=== PATIENT | female | born 2000 | race Caucasian/White ===

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

== ENCOUNTER 2020-06-30 17:48 | Emergency (ER) | payer OTHER ==
[2020-06-30 17:54] VITALS: BP 101/74; PULSE 75; RESP 16; TEMP 98.2
--- NOTE | 2020-06-30 18:01 | ED ---
Chest Pain HPI - General Source: patient Mode of arrival: ambulatory Limitations: no limitations <Aristides Frazier - Last Filed: 06/30/20 19:01> <[place] Whiting - Last Filed: 06/30/20 19:24> - General Chief Complaint: Chest Pain Stated Complaint: Chest pain Time Seen by Provider: 06/30/20 18:00 - History of Present Illness Initial Comments: 20-year-old female presenting to the emergency department with a chief complaint chest pain shortness of breath. Patient reports the symptoms began about 2 hours prior to arrival. She states that she was exposed to a wooded positive patient about 10 days ago and only recently found out that he was positive. Over the last few days she develop a sore throat and some sinus congestion. She also reports a nonproductive cough. Does report some chills but no fevers. She reports nausea but no vomiting or diarrhea. She states the chest pain is sharp and midsternal without any radiation. She does report dyspnea on exertion. Denies history of smoking asthma or COPD. Denies loss of taste or smell. (Aristides Frazier) - Related Data Home Medications Medication Instructions Recorded Confirmed Venlafaxine HCl [Effexor XR] 300 mg PO HS 10/19/18 10/25/19 ALPRAZolam [Xanax] 0.25 mg PO DAILY PRN 04/23/19 10/25/19 traZODone HCL [Desyrel] 100 mg PO HS 04/23/19 10/25/19 Ketorolac [Toradol] 10 mg PO Q6HR 10/25/19 10/25/19 Omeprazole [PriLOSEC] 40 mg PO HS 10/25/19 10/25/19 Ondansetron [Zofran ODT] 4 mg PO Q6H PRN 10/25/19 10/25/19 Tamsulosin HCl [Flomax] 0.4 mg PO HS 10/25/19 10/25/19 Previous Rx's Medication Instructions Recorded Nitrofurantoin Monohyd/M-Cryst 100 mg PO Q12HR #14 cap 10/25/19 [Macrobid] Ondansetron Odt [Zofran Odt] 4 mg PO Q8HR PRN #20 tab 10/25/19 Tamsulosin [Flomax] 0.4 mg PO DAILY #7 cap 10/25/19 Cephalexin [Keflex] 500 mg PO Q8HR #30 cap 12/30/19 Ondansetron Odt [Zofran Odt] 4 mg PO Q8HR PRN #10 tab 12/30/19 Famotidine [Pepcid] 20 mg PO DAILY #3 tablet 01/01/20 predniSONE 50 mg PO DAILY #3 tab 01/01/20 Allergies Allergy/AdvReac Type Severity Reaction Status Date / Time amoxicillin trihydrate Allergy Anaphylaxis Verified 06/30/20 17:54 [From Augmentin] azithromycin [From Zithromax] Allergy Anaphylaxis Verified 06/30/20 17:54 potassium clavulanate Allergy Anaphylaxis Verified 06/30/20 17:54 [From Augmentin] Sulfa (Sulfonamide Allergy Anaphylaxis Verified 06/30/20 17:54 Antibiotics) sulfamethoxazole Allergy Anaphylaxis Verified 06/30/20 17:54 [From Septra] trimethoprim [From Septra] Allergy Anaphylaxis Verified 06/30/20 17:54 Review of Systems ROS Other: All systems not noted in ROS Statement are negative. <Aristides Frazier - Last Filed: 06/30/20 19:01> ROS Other: All systems not noted in ROS Statement are negative. <[place] - Last Filed: 06/30/20 19:24> ROS Statement: Those systems with pertinent positive or pertinent negative responses have been documented in the HPI. EKG Findings - EKG Comments: EKG Findings:: Sinus rhythm. S1Q3T3. Ventricular rate 80, MT 156, QRS 78, QTC 424. <Aristides Frazier - Last Filed: 06/30/20 19:01> Past Medical History Past Medical History: No Reported History Additional Past Medical History / Comment(s): renal calculi History of Any Multi-Drug Resistant Organisms: None Reported Past Surgical History: Ear Surgery, Tonsillectomy Additional Past Surgical History / Comment(s): nephrolytotomy for stone removal with stent placement Past Anesthesia/Blood Transfusion Reactions: No Reported Reaction Past Psychological History: Anxiety, Depression, Panic Disorder Past Alcohol Use History: None Reported Past Drug Use History: None Reported - Past Family History Father Family Medical History: No Reported History Mother Family Medical History: Asthma, Diabetes Mellitus, Hypertension <Aristides Frazier - Last Filed: 11/15/20 19:01> General Exam Limitations: no limitations General appearance: alert, in no apparent distress, obese Head exam: Present: atraumatic, normocephalic, normal inspection Eye exam: Present: normal appearance, PERRL, EOMI Pupils: Present: normal accommodation ENT exam: Present: normal exam, normal oropharynx, mucous membranes moist, TM's normal bilaterally, normal external ear exam Neck exam: Present: normal inspection, full ROM. Absent: tenderness Respiratory exam: Present: normal lung sounds bilaterally. Absent: respiratory distress, wheezes, rales, rhonchi, stridor, chest wall tenderness, accessory muscle use Cardiovascular Exam: Present: regular rate, normal rhythm, normal heart sounds. Absent: bradycardia, tachycardia, irregular rhythm, systolic murmur, diastolic murmur GI/Abdominal exam: Present: soft. Absent: distended, tenderness, guarding Extremities exam: Present: normal inspection, full ROM, normal capillary refill. Absent: tenderness, pedal edema, joint swelling, calf tenderness Back exam: Present: normal inspection, full ROM. Absent: tenderness, CVA tenderness (R), CVA tenderness (L) Neurological exam: Present: alert, oriented X3, normal gait Psychiatric exam: Present: normal affect, anxious Skin exam: Present: warm, dry, intact, normal color <Aristides Frazier - Last Filed: 06/30/20 19:01> Course Vital Signs 06/30/20 17:51 Temperature 98.2 F Pulse Rate 75 Respiratory 16 Rate Blood Pressure 101/74 O2 Sat by Pulse 100 Oximetry Chest Pain [facility] - Differential Diagnosis ACS, Pleurisy-Other, Chest Wall Syndrome <Aristides Frazier - Last Filed: 06/30/20 19:01> <[place] Wh[place] - Last Filed: 06/30/20 19:24> - [facility] 20-year-old female presenting to the emergency department with chief complaint of chest pain shortness of breath. On physical examination, patient is not in any respiratory distress. No reproducible chest pain she is slightly anxious. Chest x-ray is unremarkable. Cor testing pending. EKG changes suggestive of possible PE. CBC, CMP, troponin, coags, d-dimer pending. At this time, patient care signed off to . (Aristides Frazier) patient presented for chest pain. Laboratory studies are all normal. D-dimer is negative. Troponin is negative. Chest x-rays negative. There is no evidence of any acute emergency condition. Patient is stable for discharge. ([place] Wh[place]) Disposition <Aristides Frazier - Last Filed: 06/30/20 19:01> Is patient prescribed a controlled substance at d/c from ED?: No <[place] - Last Filed: 06/30/20 19:24> Clinical Impression: Atypical chest pain Disposition: HOME SELF-CARE Condition: Good Instructions (If sedation given, give patient instructions): Chest Pain (ED) Referrals: Shailesh Lorenz MD [Primary Care Provider] - 1-2 days
--- NOTE | 2020-06-30 18:32 | XR ---
EXAMINATION TYPE: XR chest 2V DATE OF EXAM: 06/30/2020 COMPARISON: NONE HISTORY: Short of breath TECHNIQUE: FINDINGS: Heart and mediastinum are normal. Lungs are clear. Diaphragm is normal. Bony thorax appears normal. IMPRESSION: Normal chest. Normal heart.
[2020-06-30 19:03] LABS: ALT 21 U/L (4-34); AST 26 U/L (14-36); African American GFR (CKD) >90 (>60 ml/min/1.73 sqM); Albumin 3.9 g/dL (3.5-5.0); Alkaline Phosphatase 74 U/L (38-126); Anion Gap 6 mmol/L; Blood Urea Nitrogen 13 mg/dL (7-17); Calcium 9.1 mg/dL (8.4-10.2); Carbon Dioxide 27 mmol/L (22-30); Chloride 105 mmol/L (98-107); Glucose 87 mg/dL (74-99); Magnesium 1.9 mg/dL (1.6-2.3); Non-African American GFR(CKD) >90 (>60 ml/min/1.73 sqM); Sodium 138 mmol/L (137-145); Total Bilirubin 0.3 mg/dL (0.2-1.3); Total Protein 6.8 g/dL (6.3-8.2)
[2020-06-30 19:04] LABS: Basophils % (A) 0 %; Eosinophils % (A) 0 %; HCT 41.4 % (34.0-46.0); HGB 13.2 gm/dL (11.4-16.0); Lymphocytes # (A) 1.9 k/uL (1.0-4.8); Lymphocytes % (A) 31 %; MCH 26.4 pg (25.0-35.0); MCHC 31.8 g/dL (31.0-37.0); MCV 82.9 fL (80.0-100.0); Mean Platelet Volume 7.1; Monocytes # (A) 0.4 k/uL (0-1.0); Monocytes % (A) 6 %; Neutrophils # (A) 3.6 k/uL (1.3-7.7); Neutrophils % (A) 60 %; Platelet Count 276 k/uL (150-450); RDW 14.3 % (11.5-15.5)
[2020-06-30 19:20] LABS: D-Dimer 0.21 mg/L FEU (<0.60); INR 0.9 (<1.2); Prothrombin Time 9.6 sec (9.0-12.0)
== END 2020-06-30 19:44 | disposition home or self-care (01) ==
LOC: EC 17:48
DX: R07.89 Other chest pain (principal); F41.9 Anxiety disorder, unspecified; F32.9 Major depressive disorder, single episode, unspecified; F41.0 Panic disorder [episodic paroxysmal anxiety]; Z79.899 Other long term (current) drug therapy; Z88.0 Allergy status to penicillin; Z88.1 Allergy status to other antibiotic agents; Z88.2 Allergy status to sulfonamides; Z20.828 Contact with and (suspected) exposure to other viral communicable diseases
CPT/HCPCS: 36415; 93005; 85379; 80053; 83735; 84484; 85025; 85610; 85730; 71046; 99285; U0003

== ENCOUNTER 2020-08-07 12:17 | Emergency (ER) | payer OTHER ==
[2020-08-07 12:37] VITALS: TEMP 98.1
[2020-08-07] MEDS ORDERED: LORazepam 1 MG TAB PO STA (12:56)
--- NOTE | 2020-08-07 13:05 | ED ---
General Adult HPI - General Chief complaint: Anxiety Stated complaint: medication problem Time Seen by Provider: 08/07/20 12:48 Source: patient, RN notes reviewed, old records reviewed Mode of arrival: ambulatory Limitations: no limitations - History of Present Illness Initial comments: 20-year-old female presenting for evaluation of nausea vomiting, anxiety. Patient is currently weaning off her Effexor and starting a new antidepressant. She is not suicidal or homicidal. She is not complaining of depression just a shaky sensation and anxiety. Additionally she's had persistent nausea. No significant vomiting. No diarrhea. No fever. - Related Data Home Medications Medication Instructions Recorded Confirmed Venlafaxine HCl [Effexor XR] 150 mg PO Q48H 10/19/18 08/07/20 traZODone HCL [Desyrel] 100 mg PO HS 04/23/19 08/07/20 Ondansetron [Zofran ODT] 4 mg PO Q6H PRN 10/25/19 08/07/20 Cariprazine HCl [Vraylar] 1.5 mg PO HS 08/07/20 08/07/20 Vilazodone HCl [Viibryd] 20 mg PO Q48H 08/07/20 08/07/20 Previous Rx's Medication Instructions Recorded LORazepam [Ativan] 0.5 mg PO TID PRN 3 Days #9 tab 08/07/20 Allergies Allergy/AdvReac Type Severity Reaction Status Date / Time amoxicillin trihydrate Allergy Anaphylaxis Verified 08/07/20 14:06 [From Augmentin] azithromycin [From Zithromax] Allergy Anaphylaxis Verified 08/07/20 14:06 potassium clavulanate Allergy Anaphylaxis Verified 08/07/20 14:06 [From Augmentin] Sulfa (Sulfonamide Allergy Anaphylaxis Verified 08/07/20 14:06 Antibiotics) sulfamethoxazole Allergy Anaphylaxis Verified 08/07/20 14:06 [From Septra] trimethoprim [From Septra] Allergy Anaphylaxis Verified 08/07/20 14:06 Review of Systems ROS Statement: Those systems with pertinent positive or pertinent negative responses have been documented in the HPI. ROS Other: All systems not noted in ROS Statement are negative. Past Medical History Past Medical History: No Reported History Additional Past Medical History / Comment(s): renal calculi History of Any Multi-Drug Resistant Organisms: None Reported Past Surgical History: Ear Surgery, Tonsillectomy Additional Past Surgical History / Comment(s): nephrolytotomy for stone removal with stent placement Past Anesthesia/Blood Transfusion Reactions: No Reported Reaction Past Psychological History: Anxiety, Depression, Panic Disorder Smoking Status: Never smoker Past Alcohol Use History: None Reported Past Drug Use History: None Reported - Past Family History Father Family Medical History: No Reported History Mother Family Medical History: Asthma, Diabetes Mellitus, Hypertension General Exam Limitations: no limitations General appearance: alert, in no apparent distress Head exam: Present: atraumatic, normocephalic Eye exam: Present: normal appearance, PERRL ENT exam: Present: normal exam Neck exam: Present: normal inspection. Absent: tenderness, meningismus Respiratory exam: Present: normal lung sounds bilaterally. Absent: respiratory distress, wheezes Cardiovascular Exam: Present: regular rate, normal rhythm GI/Abdominal exam: Present: soft. Absent: distended, tenderness, guarding, rebound Extremities exam: Present: normal inspection, normal capillary refill. Absent: pedal edema Back exam: Present: normal inspection Neurological exam: Present: alert, oriented X3 Psychiatric exam: Present: normal affect, normal mood. Absent: depressed, suicidal ideation Skin exam: Present: warm, dry, intact. Absent: cyanosis, diaphoretic Course Vital Signs 08/07/20 12:33 Temperature 98.1 F Pulse Rate 101 H Respiratory 20 Rate Blood Pressure 149/89 O2 Sat by Pulse 98 Oximetry Medical Decision Making - Medical Decision Making 20-year-old female with anxiety, nausea. I did obtain laboratory testing given the complaint of nausea with some minimal epigastric abdominal pain. She has normal CBC, normal CMP, negative lipase, negative urinalysis, negative hCG. She will be prescribed several days of Ativan as she is transitioning off her current antidepressant. Patient is agreeable with plan and does have good outpatient follow-up. - Lab Data Result diagrams: 08/07/20 13:18 08/07/20 13:18 Lab Results 08/07/20 08/07/20 08/07/20 Range/Units 13:18 13:18 13:26 WBC 6.2 (4.0-11.0) k/uL RBC 4.91 (3.80-5.40) m/uL Hgb 13.4 (11.4-16.0) gm/dL Hct 40.7 (34.0-46.0) % MCV 82.7 (80.0-100.0) fL MCH 27.2 (25.0-35.0) pg MCHC 32.9 (31.0-37.0) g/dL RDW 14.4 (11.5-15.5) % Plt Count 276 (150-450) k/uL MPV 7.1 Neutrophils % 64 % Lymphocytes % 29 % Monocytes % 5 % Eosinophils % 0 % Basophils % 0 % Neutrophils # 4.0 (1.3-7.7) k/uL Lymphocytes # 1.8 (1.0-4.8) k/uL Monocytes # 0.3 (0-1.0) k/uL Eosinophils # 0.0 (0-0.7) k/uL Basophils # 0.0 (0-0.2) k/uL Sodium 140 (137-145) mmol/L Potassium 4.5 (3.5-5.1) mmol/L Chloride 107 (98-107) mmol/L Carbon Dioxide 27 (22-30) mmol/L Anion Gap 6 mmol/L BUN 11 (7-17) mg/dL Creatinine 0.69 (0.52-1.04) mg/dL Est GFR (CKD-EPI)AfAm >90 (>60 ml/min/1.73 sqM) Est GFR (CKD-EPI)NonAf >90 (>60 ml/min/1.73 sqM) Glucose 108 H (74-99) mg/dL Calcium 9.5 (8.4-10.2) mg/dL Total Bilirubin 0.5 (0.2-1.3) mg/dL AST 27 (14-36) U/L ALT 26 (4-34) U/L Alkaline Phosphatase 64 (38-126) U/L Total Protein 7.4 (6.3-8.2) g/dL Albumin 4.1 (3.5-5.0) g/dL Amylase 51 (30-110) U/L Lipase 54 (23-300) U/L Urine Color Light Yellow Urine Appearance Clear (Clear) Urine pH 5.5 (5.0-8.0) Ur Specific [place] 1.008 (1.001-1.035) Urine Protein Negative (Negative) Urine Glucose (UA) Negative (Negative) Urine Ketones Negative (Negative) Urine Blood Negative (Negative) Urine Nitrite Negative (Negative) Urine Bilirubin Negative (Negative) Urine Urobilinogen <2.0 (<2.0) mg/dL Ur Leukocyte Esterase Negative (Negative) Urine HCG, Qual (Not Detectd) 08/07/20 Range/Units 13:26 WBC (4.0-11.0) k/uL RBC (3.80-5.40) m/uL Hgb (11.4-16.0) gm/dL Hct (34.0-46.0) % MCV (80.0-100.0) fL MCH (25.0-35.0) pg MCHC (31.0-37.0) g/dL RDW (11.5-15.5) % Plt Count (150-450) k/uL MPV Neutrophils % % Lymphocytes % % Monocytes % % Eosinophils % % Basophils % % Neutrophils # (1.3-7.7) k/uL Lymphocytes # (1.0-4.8) k/uL Monocytes # (0-1.0) k/uL Eosinophils # (0-0.7) k/uL Basophils # (0-0.2) k/uL Sodium (137-145) mmol/L Potassium (3.5-5.1) mmol/L Chloride (98-107) mmol/L Carbon Dioxide (22-30) mmol/L Anion Gap mmol/L BUN (7-17) mg/dL Creatinine (0.52-1.04) mg/dL Est GFR (CKD-EPI)AfAm (>60 ml/min/1.73 sqM) Est GFR (CKD-EPI)NonAf (>60 ml/min/1.73 sqM) Glucose (74-99) mg/dL Calcium (8.4-10.2) mg/dL Total Bilirubin (0.2-1.3) mg/dL AST (14-36) U/L ALT (4-34) U/L Alkaline Phosphatase (38-126) U/L Total Protein (6.3-8.2) g/dL Albumin (3.5-5.0) g/dL Amylase (30-110) U/L Lipase (23-300) U/L Urine Color Urine Appearance (Clear) Urine pH (5.0-8.0) Ur Specific [place] (1.001-1.035) Urine Protein (Negative) Urine Glucose (UA) (Negative) Urine Ketones (Negative) Urine Blood (Negative) Urine Nitrite (Negative) Urine Bilirubin (Negative) Urine Urobilinogen (<2.0) mg/dL Ur Leukocyte Esterase (Negative) Urine HCG, Qual Not Detected (Not Detectd) Disposition Clinical Impression: Acute anxiety, Depression Disposition: HOME SELF-CARE Condition: Fair Instructions (If sedation given, give patient instructions): Generalized Anxiety Disorder (ED), Depression (ED) Prescriptions: LORazepam [Ativan] 0.5 mg PO TID PRN 3 Days #9 tab PRN Reason: Anxiety Is patient prescribed a controlled substance at d/c from ED?: No Referrals: Shailesh Lorenz MD [Primary Care Provider] - 1-2 days Time of Disposition: 14:23
[2020-08-07 13:50] LABS: Basophils % (A) 0 %; Eosinophils % (A) 0 %; HCT 40.7 % (34.0-46.0); HGB 13.4 gm/dL (11.4-16.0); Lymphocytes # (A) 1.8 k/uL (1.0-4.8); Lymphocytes % (A) 29 %; MCH 27.2 pg (25.0-35.0); MCHC 32.9 g/dL (31.0-37.0); MCV 82.7 fL (80.0-100.0); Mean Platelet Volume 7.1; Monocytes # (A) 0.3 k/uL (0-1.0); Monocytes % (A) 5 %; Neutrophils % (A) 64 %; Platelet Count 276 k/uL (150-450); RBC 4.91 m/uL (3.80-5.40); RDW 14.4 % (11.5-15.5); WBC 6.2 k/uL (4.0-11.0)
[2020-08-07 13:51] LABS: Appearance,Urine Clear (Clear); Bilirubin,Urine Negative (Negative); Blood,Urine Negative (Negative); Color,Urine Light Yellow; Glucose,Urine (UA) Negative (Negative); Ketones,Urine Negative (Negative); Leukocyte Esterase,Urine Negative (Negative); Nitrite,Urine Negative (Negative); PH, Urine 5.5 (5.0-8.0); Protein,Urine Negative (Negative); Specific Gravity,Urine 1.008 (1.001-1.035); Urobilinogen,Urine <2.0 mg/dL (<2.0)
[2020-08-07 14:14] LABS: ALT 26 U/L (4-34); AST 27 U/L (14-36); African American GFR (CKD) >90 (>60 ml/min/1.73 sqM); Albumin 4.1 g/dL (3.5-5.0); Alkaline Phosphatase 64 U/L (38-126); Amylase 51 U/L (30-110); Anion Gap 6 mmol/L; Blood Urea Nitrogen 11 mg/dL (7-17); Calcium 9.5 mg/dL (8.4-10.2); Carbon Dioxide 27 mmol/L (22-30); Chloride 107 mmol/L (98-107); Glucose 108 mg/dL (74-99); Lipase 54 U/L (23-300); Non-African American GFR(CKD) >90 (>60 ml/min/1.73 sqM); Potassium 4.5 mmol/L (3.5-5.1); Sodium 140 mmol/L (137-145); Total Bilirubin 0.5 mg/dL (0.2-1.3); Total Protein 7.4 g/dL (6.3-8.2)
[2020-08-07 15:11] VITALS: BP 112/97; PULSE 83; RESP 18
== END 2020-08-07 14:42 | disposition home or self-care (01) ==
LOC: EC 12:17
DX: F41.9 Anxiety disorder, unspecified (principal); F32.9 Major depressive disorder, single episode, unspecified; R10.13 Epigastric pain; R11.0 Nausea; F41.0 Panic disorder [episodic paroxysmal anxiety]; Z79.899 Other long term (current) drug therapy; Z88.0 Allergy status to penicillin; Z88.1 Allergy status to other antibiotic agents; Z88.2 Allergy status to sulfonamides; Z87.442 Personal history of urinary calculi
CPT/HCPCS: 36415; 80053; 81003; 81025; 82150; 83690; 85025; 99284

== ENCOUNTER 2020-09-28 10:29 | Emergency (ER) | payer OTHER ==
[2020-09-28 10:46] VITALS: TEMP 98.5
[2020-09-28] MEDS ORDERED: SODIUM CHLORIDE 0.9% 1,000 ML IV STA (11:18)
[2020-09-28] MEDS ORDERED: ONDANSETRON 4 MG/2 ML VIAL IVP STA (11:18)
[2020-09-28] MEDS ORDERED: KETOROLAC 15 MG/ML 1 ML VIAL IVP STA (11:18)
--- NOTE | 2020-09-28 11:23 | ED ---
Abdominal Pain HPI - General Chief Complaint: Abdominal Pain Stated Complaint: Nausea, stomach pain Time Seen by Provider: 09/28/20 10:51 Source: patient, family Mode of arrival: ambulatory Limitations: no limitations - History of Present Illness Initial Comments: Patient is a 20-year-old female presenting to the emergency Department with complaints of left flank pain for the last 3 days. She does have a history of kidney stones and states this does feel similar. She states the pain has been intermittent, does get severe at times very sharp with radiation to left side of her stomach. She denies any fever or chills, she has had severe nausea, no vomiting. Mild diarrhea. No other abdominal pains. She denies history of abdominal surgeries. She states she does not believe she is . She denies any chest pain, no shortness of breath. She has no further complaints at this time. Upon arrival to the ER, her vitals are stable. - Related Data Home Medications Medication Instructions Recorded Confirmed Venlafaxine HCl [Effexor XR] 150 mg PO DAILY 10/19/18 09/28/20 traZODone HCL [Desyrel] 100 mg PO HS 04/23/19 09/28/20 Cariprazine HCl [Vraylar] 1.5 mg PO HS 08/07/20 09/28/20 Previous Rx's Medication Instructions Recorded Cephalexin [Keflex] 500 mg PO BID 5 Days #10 cap 09/28/20 Allergies Allergy/AdvReac Type Severity Reaction Status Date / Time amoxicillin trihydrate Allergy Anaphylaxis Verified 09/28/20 11:58 [From Augmentin] azithromycin [From Zithromax] Allergy Anaphylaxis Verified 09/28/20 11:58 potassium clavulanate Allergy Anaphylaxis Verified 09/28/20 11:58 [From Augmentin] Sulfa (Sulfonamide Allergy Anaphylaxis Verified 09/28/20 11:58 Antibiotics) sulfamethoxazole Allergy Anaphylaxis Verified 09/28/20 11:58 [From Septra] trimethoprim [From Septra] Allergy Anaphylaxis Verified 09/28/20 11:58 Review of Systems ROS Statement: Those systems with pertinent positive or pertinent negative responses have been documented in the HPI. ROS Other: All systems not noted in ROS Statement are negative. Past Medical History Past Medical History: No Reported History Additional Past Medical History / Comment(s): renal calculi History of Any Multi-Drug Resistant Organisms: None Reported Past Surgical History: Ear Surgery, Tonsillectomy Additional Past Surgical History / Comment(s): nephrolytotomy for stone removal with stent placement Past Anesthesia/Blood Transfusion Reactions: No Reported Reaction Past Psychological History: Anxiety, Depression, Panic Disorder Smoking Status: Never smoker Past Alcohol Use History: None Reported Past Drug Use History: None Reported - Past Family History Father Family Medical History: No Reported History Mother Family Medical History: Asthma, Diabetes Mellitus, Hypertension General Exam - General Exam Comments Initial Comments: GENERAL: Patient is well-developed and well-nourished. Patient is nontoxic and in no acute distress. HEAD: Atraumatic, normocephalic. EYES: Pupils equal round and reactive to light, extraocular movements intact, sclera anicteric, conjunctiva are normal. Eyelids were unremarkable. ENT: TMs normal, nares patent, oropharynx clear without exudates. Moist mucous membranes. NECK: Normal range of motion, supple without lymphadenopathy or JVD. LUNGS: Unlabored respirations. Breath sounds clear to auscultation bilaterally and equal. No wheezes rales or rhonchi. HEART: Regular rate and rhythm without murmurs, rubs or gallops. ABDOMEN: Soft, nontender, normoactive bowel sounds. No guarding, no rebound. No masses appreciated. Mild left flank pain. : Deferred MUSCULOSKELETAL: Normal extremities with adequate strength and normal range of motion, no pitting or edema. No clubbing or cyanosis. NEUROLOGICAL: Patient is alert and oriented x 3. Motor and sensory are also intact. Cranial nerves II through XII grossly intact. Symmetrical smile. Normal speech, normal gait. PSYCH: Normal mood, normal affect. SKIN: Warm, Dry, normal turgor, no rashes or lesions noted. Limitations: no limitations Course Vital Signs 09/28/20 09/28/20 09/28/20 10:44 11:46 12:00 Temperature 98.5 F Pulse Rate 98 82 Respiratory 20 18 18 Rate Blood Pressure 162/90 132/95 O2 Sat by Pulse 99 98 Oximetry Medical Decision Making - Medical Decision Making Patient is a 20-year-old female here for left flank pain that has been intermittent for the past 3 days. Nausea, no vomiting no fevers. Vital signs are stable. She does have history of kidney stones. Labs are unremarkable, urine does show evidence for UTI. Computed tomography scan shows no evidence for left-sided stones, she does have a small stone in the right kidney, no other comp dictating process. I discussed these findings with the patient. Patient will be started on Keflex regarding the UTI. She will f/u with her PCP. Patient is stable for discharge. Patient is in agreement with this plan of care. Return parameters were discussed with the patient and they verbalized understanding. Case discussed with Dr. Najera. - Lab Data Result diagrams: 09/28/20 11:36 09/28/20 11:36 Lab Results 09/28/20 09/28/20 09/28/20 Range/Units 11:35 11:36 11:36 WBC 7.9 (4.0-11.0) k/uL RBC 5.02 (3.80-5.40) m/uL Hgb 13.5 (11.4-16.0) gm/dL Hct 41.5 (34.0-46.0) % MCV 82.7 (80.0-100.0) fL MCH 26.9 (25.0-35.0) pg MCHC 32.6 (31.0-37.0) g/dL RDW 14.4 (11.5-15.5) % Plt Count 268 (150-450) k/uL MPV 7.1 Neutrophils % 71 % Lymphocytes % 22 % Monocytes % 5 % Eosinophils % 0 % Basophils % 0 % Neutrophils # 5.6 (1.3-7.7) k/uL Lymphocytes # 1.7 (1.0-4.8) k/uL Monocytes # 0.4 (0-1.0) k/uL Eosinophils # 0.0 (0-0.7) k/uL Basophils # 0.0 (0-0.2) k/uL Sodium (137-145) mmol/L Potassium (3.5-5.1) mmol/L Chloride (98-107) mmol/L Carbon Dioxide (22-30) mmol/L Anion Gap mmol/L BUN (7-17) mg/dL Creatinine (0.52-1.04) mg/dL Est GFR (CKD-EPI)AfAm (>60 ml/min/1.73 sqM) Est GFR (CKD-EPI)NonAf (>60 ml/min/1.73 sqM) Glucose (74-99) mg/dL Calcium (8.4-10.2) mg/dL Total Bilirubin (0.2-1.3) mg/dL AST (14-36) U/L ALT (4-34) U/L Alkaline Phosphatase (38-126) U/L Total Protein (6.3-8.2) g/dL Albumin (3.5-5.0) g/dL Amylase (30-110) U/L Lipase (23-300) U/L Urine Color Yellow Urine Appearance Cloudy H (Clear) Urine pH 6.5 (5.0-8.0) Ur Specific [place] 1.024 (1.001-1.035) Urine Protein Trace H (Negative) Urine Glucose (UA) Negative (Negative) Urine Ketones Negative (Negative) Urine Blood Negative (Negative) Urine Nitrite Negative (Negative) Urine Bilirubin Negative (Negative) Urine Urobilinogen <2.0 (<2.0) mg/dL Ur Leukocyte Esterase Moderate H (Negative) Urine RBC 1 (0-5) /hpf Urine WBC 19 H (0-5) /hpf Ur Squamous Epith Cells 7 H (0-4) /hpf Amorphous Sediment Few H (None) /hpf Urine Bacteria Moderate H (None) /hpf Urine Mucus Few H (None) /hpf Urine HCG, Qual Not Detected (Not Detectd) 09/28/20 Range/Units 11:36 WBC (4.0-11.0) k/uL RBC (3.80-5.40) m/uL Hgb (11.4-16.0) gm/dL Hct (34.0-46.0) % MCV (80.0-100.0) fL MCH (25.0-35.0) pg MCHC (31.0-37.0) g/dL RDW (11.5-15.5) % Plt Count (150-450) k/uL MPV Neutrophils % % Lymphocytes % % Monocytes % % Eosinophils % % Basophils % % Neutrophils # (1.3-7.7) k/uL Lymphocytes # (1.0-4.8) k/uL Monocytes # (0-1.0) k/uL Eosinophils # (0-0.7) k/uL Basophils # (0-0.2) k/uL Sodium 142 (137-145) mmol/L Potassium 4.0 (3.5-5.1) mmol/L Chloride 107 (98-107) mmol/L Carbon Dioxide 25 (22-30) mmol/L Anion Gap 10 mmol/L BUN 15 (7-17) mg/dL Creatinine 0.70 (0.52-1.04) mg/dL Est GFR (CKD-EPI)AfAm >90 (>60 ml/min/1.73 sqM) Est GFR (CKD-EPI)NonAf >90 (>60 ml/min/1.73 sqM) Glucose 99 (74-99) mg/dL Calcium 9.7 (8.4-10.2) mg/dL Total Bilirubin 0.3 (0.2-1.3) mg/dL AST 21 (14-36) U/L ALT 19 (4-34) U/L Alkaline Phosphatase 74 (38-126) U/L Total Protein 7.5 (6.3-8.2) g/dL Albumin 4.2 (3.5-5.0) g/dL Amylase 50 (30-110) U/L Lipase 85 (23-300) U/L Urine Color Urine Appearance (Clear) Urine pH (5.0-8.0) Ur Specific [place] (1.001-1.035) Urine Protein (Negative) Urine Glucose (UA) (Negative) Urine Ketones (Negative) Urine Blood (Negative) Urine Nitrite (Negative) Urine Bilirubin (Negative) Urine Urobilinogen (<2.0) mg/dL Ur Leukocyte Esterase (Negative) Urine RBC (0-5) /hpf Urine WBC (0-5) /hpf Ur Squamous Epith Cells (0-4) /hpf Amorphous Sediment (None) /hpf Urine Bacteria (None) /hpf Urine Mucus (None) /hpf Urine HCG, Qual (Not Detectd) Disposition Clinical Impression: Abdominal pain, UTI (urinary tract infection) Disposition: HOME SELF-CARE Condition: Stable Instructions (If sedation given, give patient instructions): Urinary Tract Infection in Women (ED) Additional Instructions: Please return to the Emergency Department if symptoms worsen or any other concerns. Take antibiotic as prescribed. Make sure to drink plenty of fluids. Take Tylenol or Motrin for discomfort. Please follow-up with your regular doctor. Prescriptions: Cephalexin [Keflex] 500 mg PO BID 5 Days #10 cap Is patient prescribed a controlled substance at d/c from ED?: No Referrals: Shailesh Lorenz MD [Primary Care Provider] - 1-2 days
[2020-09-28 11:40] LABS: Basophils % (A) 0 %; Eosinophils % (A) 0 %; HCT 41.5 % (34.0-46.0); HGB 13.5 gm/dL (11.4-16.0); Lymphocytes # (A) 1.7 k/uL (1.0-4.8); Lymphocytes % (A) 22 %; MCH 26.9 pg (25.0-35.0); MCHC 32.6 g/dL (31.0-37.0); MCV 82.7 fL (80.0-100.0); Mean Platelet Volume 7.1; Monocytes # (A) 0.4 k/uL (0-1.0); Monocytes % (A) 5 %; Neutrophils # (A) 5.6 k/uL (1.3-7.7); Neutrophils % (A) 71 %; Platelet Count 268 k/uL (150-450); RBC 5.02 m/uL (3.80-5.40); RDW 14.4 % (11.5-15.5); WBC 7.9 k/uL (4.0-11.0)
[2020-09-28 11:49] LABS: ALT 19 U/L (4-34); AST 21 U/L (14-36); African American GFR (CKD) >90 (>60 ml/min/1.73 sqM); Albumin 4.2 g/dL (3.5-5.0); Alkaline Phosphatase 74 U/L (38-126); Amylase 50 U/L (30-110); Anion Gap 10 mmol/L; Blood Urea Nitrogen 15 mg/dL (7-17); Calcium 9.7 mg/dL (8.4-10.2); Carbon Dioxide 25 mmol/L (22-30); Chloride 107 mmol/L (98-107); Glucose 99 mg/dL (74-99); Lipase 85 U/L (23-300); Non-African American GFR(CKD) >90 (>60 ml/min/1.73 sqM); Sodium 142 mmol/L (137-145); Total Bilirubin 0.3 mg/dL (0.2-1.3); Total Protein 7.5 g/dL (6.3-8.2)
[2020-09-28 11:52] VITALS: RESP 18
[2020-09-28 11:56] LABS: Amorphous Sediment,Urine Few /hpf; Appearance,Urine Cloudy (Clear); Bacteria,Urine Moderate /hpf; Bilirubin,Urine Negative (Negative); Blood,Urine Negative (Negative); Color,Urine Yellow; Glucose,Urine (UA) Negative (Negative); Ketones,Urine Negative (Negative); Leukocyte Esterase,Urine Moderate (Negative); Mucus,Urine Few /hpf; Nitrite,Urine Negative (Negative); PH, Urine 6.5 (5.0-8.0); Protein,Urine Trace (Negative); RBC,Urine 1 /hpf (0-5); Specific Gravity,Urine 1.024 (1.001-1.035); Squamous Epithelial Cell,Urine 7 /hpf (0-4); Urobilinogen,Urine <2.0 mg/dL (<2.0); WBC,Urine 19 /hpf (0-5)
[2020-09-28 12:12] VITALS: BP 132/95; PULSE 82
--- NOTE | 2020-09-28 12:27 | CT ---
EXAMINATION TYPE: CT abdomen pelvis wo con DATE OF EXAM: 09/28/2020 COMPARISON: 05/11/2019. HISTORY: Left flank pain x 2 days. Negative gross hematuria. History of renal stones CT DLP: 1562.2 mGycm Automated exposure control for dose reduction was used. TECHNIQUE: Helical acquisition of images was performed from the lung bases through the pelvis. FINDINGS: LUNG BASES: No significant abnormality is appreciated. LIVER/GB: No significant abnormality is appreciated. PANCREAS: No significant abnormality is seen. SPLEEN: No significant abnormality is seen. ADRENALS: No significant abnormality is seen. KIDNEYS: 3 mm nonobstructing right renal calculus in lower pole. No bilateral hydronephrosis or left nephrolithiasis. FREE AIR: No free air is visualized RETROPERITONEAL ADENOPATHY: None visualized REPRODUCTIVE ORGANS: No significant abnormality is seen URINARY BLADDER: No significant abnormality is seen. PELVIC ADENOPATHY: None visualized. OSSEOUS STRUCTURES: No significant abnormality is seen. BOWEL: No significant abnormality is seen. OTHER: None. IMPRESSION: 3 MM NONOBSTRUCTING RIGHT RENAL CALCULUS. NO SIGNIFICANT BILATERAL HYDRONEPHROSIS. OTHERWISE NO ACUTE ABNORMALITY.
[2020-09-28] MEDS ORDERED: METOCLOPRAMIDE 5 MG/ML 2 ML VIAL IVP STA (12:37)
== END 2020-09-28 12:47 | disposition home or self-care (01) ==
LOC: EC 10:29
DX: N39.0 Urinary tract infection, site not specified (principal); F41.9 Anxiety disorder, unspecified; F32.9 Major depressive disorder, single episode, unspecified; F41.0 Panic disorder [episodic paroxysmal anxiety]; Z79.899 Other long term (current) drug therapy; Z88.0 Allergy status to penicillin; Z88.1 Allergy status to other antibiotic agents; Z88.2 Allergy status to sulfonamides; Z87.442 Personal history of urinary calculi
CPT/HCPCS: 36415; 80053; 82150; 83690; 85025; 81001; 81025; 87086; 74176; 99284; 96374; 96375 ×2; 96361; J2765; J2405; J1885

== ENCOUNTER 2020-10-03 19:23 | Emergency (ER) | payer OTHER ==
[2020-10-03 19:29] VITALS: RESP 18
[2020-10-03] MEDS ORDERED: diphenhydrAMINE 50 MG CAP PO STA (19:43)
[2020-10-03] MEDS ORDERED: methylPREDNISolone SOD SUCCI 125 MG/2 ML VIAL IV STA (19:43)
[2020-10-03] MEDS ORDERED: SODIUM CHLORIDE 0.9% 1,000 ML IV STA (19:43)
[2020-10-03] MEDS ORDERED: FAMOTIDINE 20 MG/2 ML VIAL IV STA (19:43)
--- NOTE | 2020-10-03 19:52 | ED ---
Allergic Reaction HPI - General Chief complaint: Allergic Reaction Stated complaint: Post meningitis shot reaction Time Seen by Provider: 10/03/20 19:30 Source: patient, family, RN notes reviewed Mode of arrival: ambulatory Limitations: no limitations - History of Present Illness Initial Comments: Patient is 20-year-old female that comes in status post meningitis vaccine, noted that she's had some chest tightness and other ALLERGIC symptoms. She denied any hives difficulty breathing causing her throat. She is up-to-date on vaccines. She decided come and is to get evaluated to make sure she wasn't having a anaphylactic serious ALLERGIC reaction. She was in no apparent distress or pain while sitting up in bed during interview or exam. She denied any shortness of breath headache nausea vomiting diarrhea, fever fatigue chills urticaria. - Related Data Home Medications Medication Instructions Recorded Confirmed Venlafaxine HCl [Effexor XR] 150 mg PO DAILY 10/19/18 09/28/20 traZODone HCL [Desyrel] 100 mg PO HS 04/23/19 09/28/20 Cariprazine HCl [Vraylar] 1.5 mg PO HS 08/07/20 09/28/20 Previous Rx's Medication Instructions Recorded Cephalexin [Keflex] 500 mg PO BID 5 Days #10 cap 09/28/20 Allergies Allergy/AdvReac Type Severity Reaction Status Date / Time amoxicillin trihydrate Allergy Anaphylaxis Verified 10/03/20 19:29 [From Augmentin] azithromycin [From Zithromax] Allergy Anaphylaxis Verified 10/03/20 19:29 potassium clavulanate Allergy Anaphylaxis Verified 10/03/20 19:29 [From Augmentin] Sulfa (Sulfonamide Allergy Anaphylaxis Verified 10/03/20 19:29 Antibiotics) sulfamethoxazole Allergy Anaphylaxis Verified 10/03/20 19:29 [From Septra] trimethoprim [From Septra] Allergy Anaphylaxis Verified 10/03/20 19:29 Review of Systems ROS Statement: Those systems with pertinent positive or pertinent negative responses have been documented in the HPI. ROS Other: All systems not noted in ROS Statement are negative. Past Medical History Past Medical History: No Reported History Additional Past Medical History / Comment(s): renal calculi History of Any Multi-Drug Resistant Organisms: None Reported Past Surgical History: Ear Surgery, Tonsillectomy Additional Past Surgical History / Comment(s): nephrolytotomy for stone removal with stent placement Past Anesthesia/Blood Transfusion Reactions: No Reported Reaction Past Psychological History: Anxiety, Depression, Panic Disorder Smoking Status: Never smoker Past Alcohol Use History: None Reported Past Drug Use History: None Reported - Past Family History Father Family Medical History: No Reported History Mother Family Medical History: Asthma, Diabetes Mellitus, Hypertension General Exam Limitations: no limitations General appearance: alert, in no apparent distress, obese Head exam: Present: atraumatic, normocephalic, normal inspection Eye exam: Present: normal appearance, PERRL, EOMI. Absent: scleral icterus, conjunctival injection, periorbital swelling ENT exam: Present: normal exam, mucous membranes moist Neck exam: Present: normal inspection. Absent: tenderness, meningismus, lymphadenopathy Respiratory exam: Present: normal lung sounds bilaterally. Absent: respiratory distress, wheezes, rales, rhonchi, stridor Cardiovascular Exam: Present: regular rate, normal rhythm, normal heart sounds. Absent: systolic murmur, diastolic murmur, rubs, gallop, clicks GI/Abdominal exam: Present: soft, normal bowel sounds. Absent: distended, tenderness, guarding, rebound, rigid Extremities exam: Present: normal inspection, full ROM, normal capillary refill. Absent: tenderness, pedal edema, joint swelling, calf tenderness Back exam: Present: normal inspection Neurological exam: Present: alert, oriented X3, CN II-XII intact Psychiatric exam: Present: normal affect, normal mood Skin exam: Present: warm, dry, intact, normal color. Absent: rash Course Vital Signs 10/03/20 10/03/20 10/03/20 19:25 19:42 20:57 Temperature 97.8 F 98.5 F Pulse Rate 99 77 Respiratory 18 18 18 Rate Blood Pressure 134/91 137/99 O2 Sat by Pulse 100 100 Oximetry Medical Decision Making - Medical Decision Making 26-year-old female complaining of ALLERGIC reaction status post meningitis vaccine. 1 L of normal saline, Pepcid, methylprednisone, Benadryl ordered. patient tolerated medications and fluid well. Case discussed with Dr. Najera, was decided the patient could discharged home with conservative management follow-up primary care. Disposition Clinical Impression: Allergic reaction Disposition: HOME SELF-CARE Instructions (If sedation given, give patient instructions): Allergies (ED) Additional Instructions: Please return to the Emergency Department if symptoms worsen or any other concerns. Follow-up with primary care 1-2 days. Drink plenty of fluids, continue to take [id number] Benadryl as needed for symptom control. Is patient prescribed a controlled substance at d/c from ED?: No Referrals: Shailesh Lorenz MD [Primary Care Provider] - 1-2 days Time of Disposition: 21:38
[2020-10-03 20:57] VITALS: BP 137/99; PULSE 77; TEMP 98.5
== END 2020-10-03 21:45 | disposition home or self-care (01) ==
LOC: EC 19:23
DX: R07.89 Other chest pain (principal); T50.A95A Adverse effect of other bacterial vaccines, initial encounter; F41.0 Panic disorder [episodic paroxysmal anxiety]; F32.9 Major depressive disorder, single episode, unspecified; Z79.899 Other long term (current) drug therapy; Z88.1 Allergy status to other antibiotic agents; Z88.2 Allergy status to sulfonamides; Z88.0 Allergy status to penicillin
CPT/HCPCS: 96374; 96375; 96361; 99283; J2930

== ENCOUNTER 2021-01-09 08:47 | Emergency (ER) | payer OTHER ==
[2021-01-09 08:52] VITALS: RESP 18; TEMP 98
[2021-01-09] MEDS ORDERED: ONDANSETRON 4 MG/2 ML VIAL IVP STA (09:52)
[2021-01-09 10:13] LABS: Basophils % (A) 0 %; Eosinophils # (A) 0.1 k/uL (0-0.7); Eosinophils % (A) 1 %; HCT 38.2 % (34.0-46.0); Lymphocytes # (A) 2.6 k/uL (1.0-4.8); Lymphocytes % (A) 39 %; MCH 27.8 pg (25.0-35.0); MCHC 33.9 g/dL (31.0-37.0); Mean Platelet Volume 7.6; Monocytes # (A) 0.4 k/uL (0-1.0); Monocytes % (A) 6 %; Neutrophils # (A) 3.4 k/uL (1.3-7.7); Neutrophils % (A) 52 %; Platelet Count 274 k/uL (150-450); RBC 4.66 m/uL (3.80-5.40); RDW 14.2 % (11.5-15.5); WBC 6.6 k/uL (4.0-11.0)
--- NOTE | 2021-01-09 10:18 | XR ---
EXAMINATION TYPE: XR chest 2V DATE OF EXAM: 01/09/2021 COMPARISON: 06/30/2020 HISTORY: Chest pain TECHNIQUE: Frontal and lateral views of the chest are obtained. FINDINGS: Multiple overlying leads. Heart size is within normal limits. No focal consolidation, pneu mothorax or pleural effusion. Osseous structures are grossly unremarkable. IMPRESSION: 1. No acute pulmonary disease.
[2021-01-09 10:30] LABS: ALT 28 U/L (4-34); AST 27 U/L (14-36); African American GFR (CKD) >90 (>60 ml/min/1.73 sqM); Albumin 3.9 g/dL (3.5-5.0); Alkaline Phosphatase 65 U/L (38-126); Anion Gap 7 mmol/L; Blood Urea Nitrogen 14 mg/dL (7-17); Calcium 9.1 mg/dL (8.4-10.2); Carbon Dioxide 26 mmol/L (22-30); Chloride 107 mmol/L (98-107); Glucose 99 mg/dL (74-99); Magnesium 1.9 mg/dL (1.6-2.3); Non-African American GFR(CKD) >90 (>60 ml/min/1.73 sqM); Potassium 4.1 mmol/L (3.5-5.1); Sodium 140 mmol/L (137-145); Total Bilirubin 0.3 mg/dL (0.2-1.3); Total Protein 6.6 g/dL (6.3-8.2)
[2021-01-09] MEDS ORDERED: KETOROLAC 15 MG/ML 1 ML VIAL IVP STA (10:52)
--- NOTE | 2021-01-09 10:54 | ED ---
Chest Pain HPI - General Chief Complaint: Chest Pain Stated Complaint: Chest pain Time Seen by Provider: 01/09/21 08:59 Source: patient, RN notes reviewed Mode of arrival: wheelchair Limitations: no limitations - History of Present Illness Initial Comments: 20-year-old female presents emergency Department chief complaint of chest discomfort. Patient states she woke up with it hurts with movement. No shortness of breath. Patient denies any fevers or chills no trauma no prior cardiac disease. Patient states that she did not take anything from it. She has slight heartburn issues. Patient denies any abdominal pain no fevers or chills no tense no back pain no headache or dizziness. - Related Data Home Medications Medication Instructions Recorded Confirmed traZODone HCL [Desyrel] 100 mg PO HS 04/23/19 01/09/21 Cariprazine HCl [Vraylar] 1.5 mg PO HS 08/07/20 01/09/21 Omeprazole [PriLOSEC] 40 mg PO HS 01/09/21 01/09/21 Vilazodone HCl [Viibryd] 40 mg PO HS 01/09/21 01/09/21 Previous Rx's Medication Instructions Recorded Ibuprofen [Motrin] 600 mg PO Q8HR PRN #20 tab 01/09/21 Allergies Allergy/AdvReac Type Severity Reaction Status Date / Time amoxicillin trihydrate Allergy Anaphylaxis Verified 01/09/21 10:48 [From Augmentin] azithromycin [From Zithromax] Allergy Anaphylaxis Verified 01/09/21 10:48 potassium clavulanate Allergy Anaphylaxis Verified 01/09/21 10:48 [From Augmentin] Sulfa (Sulfonamide Allergy Anaphylaxis Verified 01/09/21 10:48 Antibiotics) sulfamethoxazole Allergy Anaphylaxis Verified 01/09/21 10:48 [From Septra] trimethoprim [From Septra] Allergy Anaphylaxis Verified 01/09/21 10:48 Review of Systems ROS Statement: Those systems with pertinent positive or pertinent negative responses have been documented in the HPI. ROS Other: All systems not noted in ROS Statement are negative. EKG Findings - EKG Comments: EKG Findings:: EKG performed at 8:50 normal sinus rhythm rate of 90 AL 140 QRS 84 QT status QTC 380/464 Past Medical History Past Medical History: No Reported History Additional Past Medical History / Comment(s): renal calculi History of Any Multi-Drug Resistant Organisms: None Reported Past Surgical History: Ear Surgery, Tonsillectomy Additional Past Surgical History / Comment(s): nephrolytotomy for stone removal with stent placement Past Anesthesia/Blood Transfusion Reactions: No Reported Reaction Past Psychological History: Anxiety, Depression, Panic Disorder Smoking Status: Never smoker Past Alcohol Use History: None Reported Past Drug Use History: None Reported - Past Family History Father Family Medical History: No Reported History Mother Family Medical History: Asthma, Diabetes Mellitus, Hypertension General Exam Limitations: no limitations Course Vital Signs 01/09/21 08:49 Temperature 98 F Pulse Rate 92 Respiratory 18 Rate Blood Pressure 119/80 O2 Sat by Pulse 98 Oximetry Chest Pain MDM - MDM X-ray labs EKG reviewed no acute abnormality patient does have reproducible pain consistent with costochondritis patient be discharged in stable condition. Disposition Clinical Impression: Costochondritis, acute Disposition: HOME SELF-CARE Condition: Stable Instructions (If sedation given, give patient instructions): Costochondritis (ED) Additional Instructions: Please return to the Emergency Department if symptoms worsen or any other concerns. Prescriptions: Ibuprofen [Motrin] 600 mg PO Q8HR PRN #20 tab PRN Reason: Pain Is patient prescribed a controlled substance at d/c from ED?: No Referrals: Shailesh Lorenz MD [Primary Care Provider] - 1-2 days Time of Disposition: 10:54
[2021-01-09 11:18] VITALS: BP 107/77; PULSE 81
== END 2021-01-09 11:17 | disposition home or self-care (01) ==
LOC: EC 08:47
DX: M94.0 Chondrocostal junction syndrome [Tietze] (principal); R12 Heartburn; F32.9 Major depressive disorder, single episode, unspecified; F41.9 Anxiety disorder, unspecified; Z87.442 Personal history of urinary calculi; Z79.899 Other long term (current) drug therapy; Z88.0 Allergy status to penicillin
CPT/HCPCS: 36415; 93005; 80053; 83735; 84484; 85025; 71046; 99285; 96374; J2405

== ENCOUNTER 2021-03-26 07:04 | Emergency (ER) | payer OTHER ==
[2021-03-26 07:10] VITALS: TEMP 98.1
[2021-03-26] MEDS ORDERED: ONDANSETRON ODT 4 MG TAB PO STA (07:30)
--- NOTE | 2021-03-26 07:38 | ED ---
General Adult HPI - General Chief complaint: Urogenital Stated complaint: Back pain,dizziness Time Seen by Provider: 03/26/21 07:10 Source: patient Mode of arrival: ambulatory Limitations: no limitations - History of Present Illness Initial comments: 20 y/o f presents to the er for lower back pain. pt states she thinks she has a bladder infection. states that since yesterday she has had burning with urination and lower back pain. has also had some nausea. pt states that she has h/o pyelonephritis and kidney stones. pt states the pain is on both side of her lower back. Pt denies any other complaints such as upper back pain, abdominal pain, fevers, SOB, CP, FINNEY. - Related Data Home Medications Medication Instructions Recorded Confirmed traZODone HCL [Desyrel] 100 mg PO HS 04/23/19 03/26/21 Cariprazine HCl [Vraylar] 1.5 mg PO HS 08/07/20 03/26/21 Omeprazole [PriLOSEC] 40 mg PO HS 01/09/21 03/26/21 Vilazodone HCl [Viibryd] 20 mg PO HS 01/09/21 03/26/21 Previous Rx's Medication Instructions Recorded Nitrofurantoin Monohyd/M-Cryst 100 mg PO Q12HR #14 cap 03/26/21 [Macrobid] Allergies Allergy/AdvReac Type Severity Reaction Status Date / Time amoxicillin trihydrate Allergy Anaphylaxis Verified 03/26/21 07:55 [From Augmentin] azithromycin [From Zithromax] Allergy Anaphylaxis Verified 03/26/21 07:55 potassium clavulanate Allergy Anaphylaxis Verified 03/26/21 07:55 [From Augmentin] Sulfa (Sulfonamide Allergy Anaphylaxis Verified 03/26/21 07:55 Antibiotics) sulfamethoxazole Allergy Anaphylaxis Verified 03/26/21 07:55 [From Septra] trimethoprim [From Septra] Allergy Anaphylaxis Verified 03/26/21 07:55 Review of Systems ROS Statement: Those systems with pertinent positive or pertinent negative responses have been documented in the HPI. ROS Other: All systems not noted in ROS Statement are negative. Past Medical History Past Medical History: No Reported History Additional Past Medical History / Comment(s): renal calculi History of Any Multi-Drug Resistant Organisms: None Reported Past Surgical History: Ear Surgery, Tonsillectomy Additional Past Surgical History / Comment(s): nephrolytotomy for stone removal with stent placement Past Anesthesia/Blood Transfusion Reactions: No Reported Reaction Past Psychological History: Anxiety, Depression, Panic Disorder Smoking Status: Never smoker Past Alcohol Use History: None Reported Past Drug Use History: None Reported - Past Family History Father Family Medical History: No Reported History Mother Family Medical History: Asthma, Diabetes Mellitus, Hypertension General Exam Limitations: no limitations General appearance: alert Head exam: Present: atraumatic Eye exam: Present: normal appearance, PERRL, EOMI. Absent: scleral icterus ENT exam: Present: normal exam, mucous membranes moist Neck exam: Present: normal inspection, full ROM. Absent: tenderness Respiratory exam: Present: normal lung sounds bilaterally. Absent: respiratory distress, wheezes Cardiovascular Exam: Present: regular rate, normal rhythm, normal heart sounds GI/Abdominal exam: Present: soft, normal bowel sounds. Absent: distended, tenderness Back exam: Absent: CVA tenderness (R), CVA tenderness (L) Course Vital Signs 03/26/21 03/26/21 07:06 09:40 Temperature 98.1 F Pulse Rate 84 70 Respiratory 16 20 Rate Blood Pressure 122/89 141/83 O2 Sat by Pulse 94 L 96 Oximetry Medical Decision Making - Medical Decision Making Vitals are stable. Patient is well-appearing. Patient was unable to give a urine initially and therefore IV was started with fluids. CBC CMP unremarkable. Urinalysis maybe shows 14 white cells however this is contaminated with squamous cells. Patient has several anaphylactic ALLERGIES to antibiotics. At this time we will culture her urine and start her on Macrobid. She is ALLERGIC to several other antibiotics that cannot be used such as Keflex and Bactrim. Patient will be discharged to follow up with primary care. Will return here for any worsening symptoms. - Lab Data Result diagrams: 03/26/21 08:13 03/26/21 08:13 Lab Results 03/26/21 03/26/21 03/26/21 Range/Units 07:30 07:30 08:13 WBC 8.0 (4.0-11.0) k/uL RBC 4.74 (3.80-5.40) m/uL Hgb 12.9 (11.4-16.0) gm/dL Hct 40.3 (34.0-46.0) % MCV 85.1 (80.0-100.0) fL MCH 27.3 (25.0-35.0) pg MCHC 32.0 (31.0-37.0) g/dL RDW 14.5 (11.5-15.5) % Plt Count 315 (150-450) k/uL MPV 7.5 Neutrophils % 60 % Lymphocytes % 32 % Monocytes % 5 % Eosinophils % 1 % Basophils % 0 % Neutrophils # 4.8 (1.3-7.7) k/uL Lymphocytes # 2.6 (1.0-4.8) k/uL Monocytes # 0.4 (0-1.0) k/uL Eosinophils # 0.0 (0-0.7) k/uL Basophils # 0.0 (0-0.2) k/uL Sodium (137-145) mmol/L Potassium (3.5-5.1) mmol/L Chloride (98-107) mmol/L Carbon Dioxide (22-30) mmol/L Anion Gap mmol/L BUN (7-17) mg/dL Creatinine (0.52-1.04) mg/dL Est GFR (CKD-EPI)AfAm (>60 ml/min/1.73 sqM) Est GFR (CKD-EPI)NonAf (>60 ml/min/1.73 sqM) Glucose (74-99) mg/dL Plasma Lactic Acid Issa (0.7-2.0) mmol/L Calcium (8.4-10.2) mg/dL Total Bilirubin (0.2-1.3) mg/dL AST (14-36) U/L ALT (4-34) U/L Alkaline Phosphatase (38-126) U/L Total Protein (6.3-8.2) g/dL Albumin (3.5-5.0) g/dL Urine Color Yellow Urine Appearance Cloudy H (Clear) Urine pH 5.5 (5.0-8.0) Ur Specific [place] 1.032 (1.001-1.035) Urine Protein Trace H (Negative) Urine Glucose (UA) Negative (Negative) Urine Ketones Trace H (Negative) Urine Blood Negative (Negative) Urine Nitrite Negative (Negative) Urine Bilirubin Negative (Negative) Urine Urobilinogen 2.0 (<2.0) mg/dL Ur Leukocyte Esterase Small H (Negative) Urine RBC 1 (0-5) /hpf Urine WBC 16 H (0-5) /hpf Ur Squamous Epith Cells 14 H (0-4) /hpf Urine Bacteria Occasional H (None) /hpf Urine Mucus Many H (None) /hpf Urine HCG, Qual Not Detected (Not Detectd) 03/26/21 03/26/21 Range/Units 08:13 08:13 WBC (4.0-11.0) k/uL RBC (3.80-5.40) m/uL Hgb (11.4-16.0) gm/dL Hct (34.0-46.0) % MCV (80.0-100.0) fL MCH (25.0-35.0) pg MCHC (31.0-37.0) g/dL RDW (11.5-15.5) % Plt Count (150-450) k/uL MPV Neutrophils % % Lymphocytes % % Monocytes % % Eosinophils % % Basophils % % Neutrophils # (1.3-7.7) k/uL Lymphocytes # (1.0-4.8) k/uL Monocytes # (0-1.0) k/uL Eosinophils # (0-0.7) k/uL Basophils # (0-0.2) k/uL Sodium 140 (137-145) mmol/L Potassium 3.9 (3.5-5.1) mmol/L Chloride 108 H (98-107) mmol/L Carbon Dioxide 24 (22-30) mmol/L Anion Gap 8 mmol/L BUN 12 (7-17) mg/dL Creatinine 0.70 (0.52-1.04) mg/dL Est GFR (CKD-EPI)AfAm >90 (>60 ml/min/1.73 sqM) Est GFR (CKD-EPI)NonAf >90 (>60 ml/min/1.73 sqM) Glucose 94 (74-99) mg/dL Plasma Lactic Acid Issa 0.7 (0.7-2.0) mmol/L Calcium 9.4 (8.4-10.2) mg/dL Total Bilirubin 0.4 (0.2-1.3) mg/dL AST 30 (14-36) U/L ALT 31 (4-34) U/L Alkaline Phosphatase 68 (38-126) U/L Total Protein 6.7 (6.3-8.2) g/dL Albumin 3.9 (3.5-5.0) g/dL Urine Color Urine Appearance (Clear) Urine pH (5.0-8.0) Ur Specific [place] (1.001-1.035) Urine Protein (Negative) Urine Glucose (UA) (Negative) Urine Ketones (Negative) Urine Blood (Negative) Urine Nitrite (Negative) Urine Bilirubin (Negative) Urine Urobilinogen (<2.0) mg/dL Ur Leukocyte Esterase (Negative) Urine RBC (0-5) /hpf Urine WBC (0-5) /hpf Ur Squamous Epith Cells (0-4) /hpf Urine Bacteria (None) /hpf Urine Mucus (None) /hpf Urine HCG, Qual (Not Detectd) Disposition Clinical Impression: Urinary tract infection Disposition: HOME SELF-CARE Condition: Good Instructions (If sedation given, give patient instructions): Urinary Tract Infection in Women (ED) Additional Instructions: Please take Macrobid as directed. Please follow-up with her doctor. Return to the emergency room for any worsening symptoms. Prescriptions: Nitrofurantoin Monohyd/M-Cryst [Macrobid] 100 mg PO Q12HR #14 cap Is patient prescribed a controlled substance at d/c from ED?: No Referrals: Shailesh Lorenz MD [Primary Care Provider] - 1-2 days Time of Disposition: 10:36
[2021-03-26] MEDS ORDERED: SODIUM CHLORIDE 0.9% 1,000 ML IV STA ×2 (07:45→07:47)
[2021-03-26 08:33] LABS: Basophils % (A) 0 %; Eosinophils % (A) 1 %; HCT 40.3 % (34.0-46.0); HGB 12.9 gm/dL (11.4-16.0); Lymphocytes # (A) 2.6 k/uL (1.0-4.8); Lymphocytes % (A) 32 %; MCH 27.3 pg (25.0-35.0); MCV 85.1 fL (80.0-100.0); Mean Platelet Volume 7.5; Monocytes # (A) 0.4 k/uL (0-1.0); Monocytes % (A) 5 %; Neutrophils # (A) 4.8 k/uL (1.3-7.7); Neutrophils % (A) 60 %; Platelet Count 315 k/uL (150-450); RBC 4.74 m/uL (3.80-5.40); RDW 14.5 % (11.5-15.5)
[2021-03-26 08:41] LABS: ALT 31 U/L (4-34); AST 30 U/L (14-36); African American GFR (CKD) >90 (>60 ml/min/1.73 sqM); Albumin 3.9 g/dL (3.5-5.0); Alkaline Phosphatase 68 U/L (38-126); Anion Gap 8 mmol/L; Blood Urea Nitrogen 12 mg/dL (7-17); Calcium 9.4 mg/dL (8.4-10.2); Carbon Dioxide 24 mmol/L (22-30); Chloride 108 mmol/L (98-107); Glucose 94 mg/dL (74-99); Non-African American GFR(CKD) >90 (>60 ml/min/1.73 sqM); Potassium 3.9 mmol/L (3.5-5.1); Sodium 140 mmol/L (137-145); Total Bilirubin 0.4 mg/dL (0.2-1.3); Total Protein 6.7 g/dL (6.3-8.2)
[2021-03-26 09:45] VITALS: RESP 20
[2021-03-26 10:04] LABS: Appearance,Urine Cloudy (Clear); Bacteria,Urine Occasional /hpf; Bilirubin,Urine Negative (Negative); Blood,Urine Negative (Negative); Color,Urine Yellow; Glucose,Urine (UA) Negative (Negative); Ketones,Urine Trace (Negative); Leukocyte Esterase,Urine Small (Negative); Mucus,Urine Many /hpf; Nitrite,Urine Negative (Negative); PH, Urine 5.5 (5.0-8.0); Protein,Urine Trace (Negative); RBC,Urine 1 /hpf (0-5); Specific Gravity,Urine 1.032 (1.001-1.035); Squamous Epithelial Cell,Urine 14 /hpf (0-4); WBC,Urine 16 /hpf (0-5)
[2021-03-26 11:02] VITALS: BP 110/78; PULSE 85
== END 2021-03-26 11:06 | disposition home or self-care (01) ==
LOC: EC 07:04
DX: N39.0 Urinary tract infection, site not specified (principal); F32.9 Major depressive disorder, single episode, unspecified; F41.9 Anxiety disorder, unspecified; Z79.899 Other long term (current) drug therapy; Z88.0 Allergy status to penicillin; Z88.1 Allergy status to other antibiotic agents; Z88.2 Allergy status to sulfonamides; Z83.3 Family history of diabetes mellitus; Z82.49 Family history of ischemic heart disease and other diseases of the circulatory system
CPT/HCPCS: 29125; 36415; 80053; 81001; 81025; 83605; 85025; 87086; 96360; 96361; 99283; 99284

== ENCOUNTER 2021-10-28 07:48 | Emergency (ER) | payer OTHER ==
[2021-10-28 07:59] VITALS: RESP 18; TEMP 97.1
[2021-10-28] MEDS ORDERED: METOCLOPRAMIDE 5 MG/ML 2 ML VIAL IVP STA (09:20)
[2021-10-28] MEDS ORDERED: diphenhydrAMINE 50 MG/ML 1 ML VIAL IVP STA (09:20)
[2021-10-28] MEDS ORDERED: SODIUM CHLORIDE 0.9% 2,000 ML IV STA (09:20)
--- NOTE | 2021-10-28 09:23 | ED ---
Nausea/Vomiting/Diarrhea HPI - General Chief complaint: Nausea/Vomiting/Diarrhea Stated complaint: NVD/Dizziness Time Seen by Provider: 10/28/21 09:04 Source: patient, family, RN notes reviewed Mode of arrival: ambulatory Limitations: no limitations - History of Present Illness Initial comments: 21-year-old female presents emergency Department chief complaint of nausea vomiting diarrhea. Patient states started last night with severe diarrhea, increased nausea vomiting. She states she feels very dehydrated. Denies any sick contacts. She states she has diffuse abdominal pain no localized pain. Denies any fevers or chills patient states she's had no prior abdominal surgeries denies any chance . - Related Data Home Medications Medication Instructions Recorded Confirmed traZODone HCL [Desyrel] 100 mg PO HS 04/23/19 10/28/21 Cariprazine HCl [Vraylar] 1.5 mg PO HS 08/07/20 10/28/21 Omeprazole [PriLOSEC] 40 mg PO HS 01/09/21 10/28/21 Vilazodone HCl [Viibryd] 40 mg PO HS 01/09/21 10/28/21 Previous Rx's Medication Instructions Recorded Ondansetron Odt [Zofran Odt] 4 mg PO Q8HR PRN #10 tab 10/28/21 Allergies Allergy/AdvReac Type Severity Reaction Status Date / Time amoxicillin trihydrate Allergy Anaphylaxis Verified 10/28/21 09:28 [From Augmentin] azithromycin [From Zithromax] Allergy Anaphylaxis Verified 10/28/21 09:28 potassium clavulanate Allergy Anaphylaxis Verified 10/28/21 09:28 [From Augmentin] Sulfa (Sulfonamide Allergy Anaphylaxis Verified 10/28/21 09:28 Antibiotics) sulfamethoxazole Allergy Anaphylaxis Verified 10/28/21 09:28 [From Septra] trimethoprim [From Septra] Allergy Anaphylaxis Verified 10/28/21 09:28 Review of Systems ROS Statement: Those systems with pertinent positive or pertinent negative responses have been documented in the HPI. ROS Other: All systems not noted in ROS Statement are negative. Past Medical History Past Medical History: No Reported History Additional Past Medical History / Comment(s): renal calculi History of Any Multi-Drug Resistant Organisms: None Reported Past Surgical History: Ear Surgery, Tonsillectomy Additional Past Surgical History / Comment(s): nephrolytotomy for stone removal with stent placement Past Anesthesia/Blood Transfusion Reactions: No Reported Reaction Past Psychological History: Anxiety, Depression, Panic Disorder Smoking Status: Never smoker Past Alcohol Use History: None Reported Past Drug Use History: None Reported - Past Family History Father Family Medical History: No Reported History Mother Family Medical History: Asthma, Diabetes Mellitus, Hypertension General Exam Limitations: no limitations General appearance: alert, in no apparent distress Head exam: Present: atraumatic, normocephalic, normal inspection Eye exam: Present: normal appearance, PERRL, EOMI. Absent: scleral icterus, conjunctival injection, periorbital swelling ENT exam: Present: normal exam, normal oropharynx, mucous membranes moist Neck exam: Present: normal inspection, full ROM. Absent: tenderness, meningismus, lymphadenopathy Respiratory exam: Present: normal lung sounds bilaterally. Absent: respiratory distress, wheezes, rales, rhonchi, stridor Cardiovascular Exam: Present: normal rhythm, tachycardia, normal heart sounds. Absent: systolic murmur, diastolic murmur, rubs, gallop, clicks GI/Abdominal exam: Present: soft, normal bowel sounds. Absent: distended, tenderness, guarding, rebound, rigid Course Vital Signs 10/28/21 07:53 Temperature 97.1 F L Pulse Rate 132 H Respiratory 18 Rate Blood Pressure 113/80 O2 Sat by Pulse 97 Oximetry Medical Decision Making - Medical Decision Making 29-year-old female presented for nausea vomiting diarrhea. Patient's laboratory a mild ketonuria. Patient had mild dehydration was given 2 L of fluid, antiemetics as felt greatly improved she has tolerated oral intake. Patient we discharged in stable condition with Zofran for her gastroenteritis. Parameters were discussed. - Lab Data Result diagrams: 10/28/21 10:05 10/28/21 10:05 Lab Results 10/28/21 10/28/21 10/28/21 Range/Units 10:05 10:05 11:16 WBC 8.3 (3.8-10.6) k/uL RBC 5.46 H (3.80-5.40) m/uL Hgb 14.9 (11.4-16.0) gm/dL Hct 45.5 (34.0-46.0) % MCV 83.3 (80.0-100.0) fL MCH 27.2 (25.0-35.0) pg MCHC 32.7 (31.0-37.0) g/dL RDW 14.6 (11.5-15.5) % Plt Count 299 (150-450) k/uL MPV 7.4 Neutrophils % 91 % Lymphocytes % 4 % Monocytes % 4 % Eosinophils % 0 % Basophils % 0 % Neutrophils # 7.5 (1.3-7.7) k/uL Lymphocytes # 0.3 L (1.0-4.8) k/uL Monocytes # 0.3 (0-1.0) k/uL Eosinophils # 0.0 (0-0.7) k/uL Basophils # 0.0 (0-0.2) k/uL Sodium 139 (137-145) mmol/L Potassium 4.3 (3.5-5.1) mmol/L Chloride 108 H (98-107) mmol/L Carbon Dioxide 19 L (22-30) mmol/L Anion Gap 12 mmol/L BUN 17 (7-17) mg/dL Creatinine 0.70 (0.52-1.04) mg/dL Est GFR (CKD-EPI)AfAm >90 (>60 ml/min/1.73 sqM) Est GFR (CKD-EPI)NonAf >90 (>60 ml/min/1.73 sqM) Glucose 137 H (74-99) mg/dL Calcium 8.9 (8.4-10.2) mg/dL Total Bilirubin 1.0 (0.2-1.3) mg/dL AST 30 (14-36) U/L ALT 28 (4-34) U/L Alkaline Phosphatase 57 (38-126) U/L Total Protein 7.5 (6.3-8.2) g/dL Albumin 4.2 (3.5-5.0) g/dL Lipase 48 (23-300) U/L Urine Color Yellow Urine Appearance Turbid H (Clear) Urine pH 5.5 (5.0-8.0) Ur Specific [place] 1.033 (1.001-1.035) Urine Protein Trace H (Negative) Urine Glucose (UA) Negative (Negative) Urine Ketones 2+ H (Negative) Urine Blood Negative (Negative) Urine Nitrite Negative (Negative) Urine Bilirubin Negative (Negative) Urine Urobilinogen <2.0 (<2.0) mg/dL Ur Leukocyte Esterase Negative (Negative) Urine RBC 1 (0-5) /hpf Ur Squamous Epith Cells 1 (0-4) /hpf Amorphous Sediment Moderate H (None) /hpf Urine Mucus Occasional H (None) /hpf Urine HCG, Qual (Not Detectd) 10/28/21 Range/Units 11:16 WBC (3.8-10.6) k/uL RBC (3.80-5.40) m/uL Hgb (11.4-16.0) gm/dL Hct (34.0-46.0) % MCV (80.0-100.0) fL MCH (25.0-35.0) pg MCHC (31.0-37.0) g/dL RDW (11.5-15.5) % Plt Count (150-450) k/uL MPV Neutrophils % % Lymphocytes % % Monocytes % % Eosinophils % % Basophils % % Neutrophils # (1.3-7.7) k/uL Lymphocytes # (1.0-4.8) k/uL Monocytes # (0-1.0) k/uL Eosinophils # (0-0.7) k/uL Basophils # (0-0.2) k/uL Sodium (137-145) mmol/L Potassium (3.5-5.1) mmol/L Chloride (98-107) mmol/L Carbon Dioxide (22-30) mmol/L Anion Gap mmol/L BUN (7-17) mg/dL Creatinine (0.52-1.04) mg/dL Est GFR (CKD-EPI)AfAm (>60 ml/min/1.73 sqM) Est GFR (CKD-EPI)NonAf (>60 ml/min/1.73 sqM) Glucose (74-99) mg/dL Calcium (8.4-10.2) mg/dL Total Bilirubin (0.2-1.3) mg/dL AST (14-36) U/L ALT (4-34) U/L Alkaline Phosphatase (38-126) U/L Total Protein (6.3-8.2) g/dL Albumin (3.5-5.0) g/dL Lipase (23-300) U/L Urine Color Urine Appearance (Clear) Urine pH (5.0-8.0) Ur Specific [place] (1.001-1.035) Urine Protein (Negative) Urine Glucose (UA) (Negative) Urine Ketones (Negative) Urine Blood (Negative) Urine Nitrite (Negative) Urine Bilirubin (Negative) Urine Urobilinogen (<2.0) mg/dL Ur Leukocyte Esterase (Negative) Urine RBC (0-5) /hpf Ur Squamous Epith Cells (0-4) /hpf Amorphous Sediment (None) /hpf Urine Mucus (None) /hpf Urine HCG, Qual Not Detected (Not Detectd) Disposition Clinical Impression: Gastroenteritis Disposition: HOME SELF-CARE Condition: Stable Instructions (If sedation given, give patient instructions): Gastroenteritis (ED) Additional Instructions: Please return to the Emergency Department if symptoms worsen or any other concerns. Prescriptions: Ondansetron Odt [Zofran Odt] 4 mg PO Q8HR PRN #10 tab PRN Reason: Nausea Is patient prescribed a controlled substance at d/c from ED?: No Referrals: Shailesh Lorenz MD [Primary Care Provider] - 1-2 days Time of Disposition: 12:42
[2021-10-28 10:30] LABS: Basophils % (A) 0 %; Eosinophils % (A) 0 %; HCT 45.5 % (34.0-46.0); HGB 14.9 gm/dL (11.4-16.0); Lymphocytes # (A) 0.3 k/uL (1.0-4.8); Lymphocytes % (A) 4 %; MCH 27.2 pg (25.0-35.0); MCHC 32.7 g/dL (31.0-37.0); MCV 83.3 fL (80.0-100.0); Mean Platelet Volume 7.4; Monocytes # (A) 0.3 k/uL (0-1.0); Monocytes % (A) 4 %; Neutrophils # (A) 7.5 k/uL (1.3-7.7); Neutrophils % (A) 91 %; Platelet Count 299 k/uL (150-450); RBC 5.46 m/uL (3.80-5.40); RDW 14.6 % (11.5-15.5); WBC 8.3 k/uL (3.8-10.6)
[2021-10-28 11:07] LABS: ALT 28 U/L (4-34); AST 30 U/L (14-36); African American GFR (CKD) >90 (>60 ml/min/1.73 sqM); Albumin 4.2 g/dL (3.5-5.0); Alkaline Phosphatase 57 U/L (38-126); Anion Gap 12 mmol/L; Blood Urea Nitrogen 17 mg/dL (7-17); Calcium 8.9 mg/dL (8.4-10.2); Carbon Dioxide 19 mmol/L (22-30); Chloride 108 mmol/L (98-107); Glucose 137 mg/dL (74-99); Lipase 48 U/L (23-300); Non-African American GFR(CKD) >90 (>60 ml/min/1.73 sqM); Sodium 139 mmol/L (137-145); Total Protein 7.5 g/dL (6.3-8.2)
[2021-10-28 11:10] LABS: Potassium 4.3 mmol/L (3.5-5.1)
[2021-10-28] MEDS ORDERED: ONDANSETRON 4 MG/2 ML VIAL IVP STA (11:17)
[2021-10-28 12:05] LABS: Amorphous Sediment,Urine Moderate /hpf; Appearance,Urine Turbid (Clear); Bilirubin,Urine Negative (Negative); Blood,Urine Negative (Negative); Color,Urine Yellow; Glucose,Urine (UA) Negative (Negative); Ketones,Urine 2+ (Negative); Leukocyte Esterase,Urine Negative (Negative); Mucus,Urine Occasional /hpf; Nitrite,Urine Negative (Negative); PH, Urine 5.5 (5.0-8.0); Protein,Urine Trace (Negative); RBC,Urine 1 /hpf (0-5); Specific Gravity,Urine 1.033 (1.001-1.035); Squamous Epithelial Cell,Urine 1 /hpf (0-4); Urobilinogen,Urine <2.0 mg/dL (<2.0)
[2021-10-28] MEDS ORDERED: ORPHENADRINE 30 MG/ML 2 ML VIAL IVP STA (13:31)
[2021-10-28] MEDS ORDERED: methylPREDNISolone SOD SUCCI 125 MG/2 ML VIAL IV STA (13:31)
[2021-10-28] MEDS ORDERED: KETOROLAC 15 MG/ML 1 ML VIAL IVP STA (13:31)
[2021-10-28] MEDS ORDERED: ACET/COD 300 MG/30 MG STARTER PACK 6 TAB BTL PO STA (13:31)
[2021-10-28 13:59] VITALS: BP 122/80; PULSE 98
== END 2021-10-28 13:58 | disposition home or self-care (01) ==
LOC: EC 07:48
DX: K52.9 Noninfective gastroenteritis and colitis, unspecified (principal); F32.A Depression, unspecified; F41.9 Anxiety disorder, unspecified; Z79.899 Other long term (current) drug therapy
CPT/HCPCS: 36415; 80053; 83690; 85025; 81001; 81025; 99284; 96374; 96375 ×2; 96361 ×2; J1200; J2765; J2405

== ENCOUNTER 2022-02-05 14:08 | Inpatient (IN) | payer BC, OTHER ==
--- NOTE | 2022-02-05 16:38 | ED ---
General Adult HPI - General Chief complaint: Psychiatric Symptoms Stated complaint: Mental health eval Time Seen by Provider: 02/05/22 16:22 Source: patient, RN notes reviewed, old records reviewed Mode of arrival: ambulatory Limitations: no limitations - History of Present Illness Initial comments: Patient is a 21-year-old female with past medical history remarkable for psychiatric illness, acid reflex who presents emergency Department complaining of psychiatric evaluation needed. Is endorsing suicidal ideations as well as hallucinations over the last 1-2 days. Patient states that over the last week she is feeling worse as well as including increased anxiety. They increased her psychiatric medications over the last week and she attributable to this. Attempted to take an Ativan at home yesterday of her mothers with minimal improvement. Currently has no acute complaints at this time. Does endorse suicidal ideations but denies any attempts or plan. Endorses paranoia. Denies homicidal ideations, attempts, plans. States she occasionally feels like she sees spiders in her eyes, which she knows aren't there. No other acute complaint at this time. Presents for further evaluation. - Related Data Home Medications Medication Instructions Recorded Confirmed traZODone HCL [Desyrel] 100 mg PO HS 04/23/19 02/05/22 Cariprazine HCl [Vraylar] 1.5 mg PO HS 08/07/20 02/05/22 Omeprazole [PriLOSEC] 40 mg PO HS 01/09/21 02/05/22 Vilazodone HCl [Viibryd] 40 mg PO HS 01/09/21 02/05/22 Ciprofloxacin HCl 500 mg PO BID 02/05/22 02/05/22 Previous Rx's Medication Instructions Recorded Ondansetron Odt [Zofran Odt] 4 mg PO Q8HR PRN #10 tab 10/28/21 Allergies Allergy/AdvReac Type Severity Reaction Status Date / Time amoxicillin trihydrate Allergy Anaphylaxis Verified 02/05/22 21:02 [From Augmentin] azithromycin [From Zithromax] Allergy Anaphylaxis Verified 02/05/22 21:02 potassium clavulanate Allergy Anaphylaxis Verified 02/05/22 21:02 [From Augmentin] Sulfa (Sulfonamide Allergy Anaphylaxis Verified 02/05/22 21:02 Antibiotics) sulfamethoxazole Allergy Anaphylaxis Verified 02/05/22 21:02 [From Septra] trimethoprim [From Septra] Allergy Anaphylaxis Verified 02/05/22 21:02 Review of Systems ROS Statement: Those systems with pertinent positive or pertinent negative responses have been documented in the HPI. Review of Systems: CONST: Denies fever EYES: Denies blurry vision ENT: Denies nasal congestion C/V: Denies Chest pain RESP: Denies shortness of breath GI: Denies abdominal pain : Denies dysuria SKIN: Denies rash. MSK: Denies joint pain. NEURO: Denies headache PSYCH: Denies homicidal ideations/plans/attempts. Denies visual or auditory hallucinations. He endorses suicidal ideation. Denies suicidal plan or attempt. Endorses hallucinations of spiders. Endorses anxiety. ROS Other: All systems not noted in ROS Statement are negative. Past Medical History Past Medical History: No Reported History Additional Past Medical History / Comment(s): renal calculi History of Any Multi-Drug Resistant Organisms: None Reported Past Surgical History: Ear Surgery, Tonsillectomy Additional Past Surgical History / Comment(s): nephrolytotomy for stone removal with stent placement Past Anesthesia/Blood Transfusion Reactions: No Reported Reaction Past Psychological History: Anxiety, Depression, Panic Disorder Smoking Status: Never smoker Past Alcohol Use History: None Reported Past Drug Use History: None Reported - Past Family History Father Family Medical History: No Reported History Mother Family Medical History: Asthma, Diabetes Mellitus, Hypertension General Exam - General Exam Comments Initial Comments: General: Appears in no acute distress. HEAD: Normal with no signs of head trauma. EYES: PERRLA, EOMI, conjunctiva normal, no discharge. Pupils are 2-3 mm and equal bilaterally. ENT: Hearing grossly intact, normal oropharynx. RESPIRATORY: Clear breath sounds bilaterally. No wheezes, rales, or rhonchi. C/V: Regular rate and rhythm. S1 and S2 auscultated, no edema, peripheral pulses 2+ and intact throughout ABD: Abd is soft, nontender, nondistended EXT: Normal range of motion, no obvious deformity SKIN: No rashes or lesions observed on exposed skin. NEURO: Alert and oriented 4. No focal deficits. Limitations: no limitations Course Vital Signs 02/05/22 02/05/22 15:11 20:51 Temperature 97.3 F L 97.8 F Pulse Rate 80 Pulse Rate [ 97 Right] Respiratory 20 18 Rate Blood Pressure 148/88 Blood Pressure 130/63 [Right Arm] O2 Sat by Pulse 100 96 Oximetry Medical Decision Making - Medical Decision Making Based on the patient's presentation and physical exam, I'm concerned for need for psychiatric evaluation. She is having suicidal ideations, as well as increased anxiety and paranoia. Patient was placed in green scrubs. Suicide precautions were ordered. Sitter was ordered. BAT and UDS were ordered. BAT is 0.00 UDS is still pending at this time. This time, patient is medically cleared for evaluation by psychiatry. Disposition is pending psychiatric evaluation. Vital signs are within normal limits.Patient was evaluate by psychiatry. Decision was made to admit the patient inpatient psychiatry. Patient was admitted in stable condition. - Lab Data Lab Results 02/05/22 Range/Units 19:14 Coronavirus (PCR) Not Detected (Not Detectd) Disposition Clinical Impression: Encounter for psychiatric assessment, Suicidal ideation Disposition: TRANSFER TO PSYCH HOSP/UNIT Condition: Stable
[2022-02-05] MEDS ORDERED: MAG HYDROX/AL HYDROX/SIMETH 30 ML CUP PO PRN (20:52)
[2022-02-05] MEDS ORDERED: HALOPERIDOL LACTATE 5 MG/ML 1 ML VIAL IM PRN (20:52)
[2022-02-05] MEDS ORDERED: MAGNESIUM HYDROXIDE 2,400 MG/10 ML CUP PO PRN (20:52)
[2022-02-05] MEDS ORDERED: haloperidoL 5 MG TAB PO PRN (20:57)
[2022-02-05] MEDS ORDERED: LORazepam 2 MG/ML INJ IM PRN (20:57)
[2022-02-05] MEDS: traZODone HCL 50 MG TAB PO SCH (22:02)
[2022-02-05 22:34] VITALS: RESP 18
[2022-02-05 23:24] LABS: Amphetamine Screen,Urine Not Detected (NotDetected); Barbiturate Screen,Urine Not Detected (NotDetected); Benzodiazepines Screen,Urine Not Detected (NotDetected); Cocaine Screen,Urine Not Detected (NotDetected); Methadone Screen, Urine Not Detected (NotDetected); Opiate Screen,Urine Not Detected (NotDetected); Oxycodone Screen, Urine Not Detected (NotDetected); Phencyclidine Screen,Urine Not Detected (NotDetected); Tricyclic Antidepressant,Urine Not Detected (NotDetected); Urn Cannabinoid Scrn Detected (NotDetected)
[2022-02-05 23:59] LABS: Appearance,Urine Cloudy (Clear); Bacteria,Urine Few /hpf; Bilirubin,Urine Negative (Negative); Blood,Urine Negative (Negative); Color,Urine Yellow; Glucose,Urine (UA) Negative (Negative); Ketones,Urine Negative (Negative); Leukocyte Esterase,Urine Small (Negative); Mucus,Urine Rare /hpf; Nitrite,Urine Negative (Negative); PH, Urine 7.5 (5.0-8.0); Protein,Urine Negative (Negative); RBC,Urine 1 /hpf (0-5); Specific Gravity,Urine 1.018 (1.001-1.035); Squamous Epithelial Cell,Urine 6 /hpf (0-4); Urobilinogen,Urine <2.0 mg/dL (<2.0); WBC,Urine 5 /hpf (0-5)
[2022-02-06] MEDS: LORazepam 1 MG TAB PO PRN ×3 (02:40→23:32)
--- NOTE | 2022-02-06 04:00 | P.CONS ---
History of Present Illness - Reason for Consult Consult date: 02/06/22 - History of Present Illness The patient is a 21-year-old female with no known PMH who presented to the emergency room with complaints of depression and suicidal ideation. The patient was admitted to the mental health in which she was seen and evaluated. She reports that her medications had recently changed and she attributes this to her worsening symptoms. She also complained of hallucinations over the past few days. She denied any additional complaints at the time of interview. She denied experiencing chest discomfort, shortness of breath, fever, chills, cough, nausea, vomiting, abdominal pain, diarrhea. She endorsed marijuana use recreationally but denied tobacco or alcohol use. Also denied any additional illicit substance use. Review of systems: Pertinent positives and negatives as discussed in HPI, a complete review of systems was performed and all other systems are negative. Physical examination: General: non toxic, no distress, appears at stated age, normal weight Derm: no unusual rashes/lesions no unusual ecchymoses, warm, dry Head: atraumatic, normocephalic, symmetric Eyes: EOMI, no lid lag, anicteric sclera, pupils equal round reactive to light ENT: Nose and ears atraumatic, no thrush, no pharyngeal erythema Neck: No thyromegaly, no cervical lymphadenopathy, trachea midline, supple Mouth: no lip lesion, mucus membranes moist Cardiovascular: S1S2 reg, no murmur, positive posterior tibial pulse bilateral, no edema, capillary refill less than 2 seconds Lungs: CTA bilateral, no rhonchi, no rales , no accessory muscle use Abdominal: soft, nontender to palpation, no guarding, no appreciable organomegaly, normal bowel sounds Ext: no gross muscle atrophy, muscle strength 5 out of 5 in all 4 extremities grossly, no contractures, Neuro: CN II-XI grossly intact, light touch intact all 4 extremities, finger to nose within normal limits, Psych: Alert, oriented, appropriate affect Assessment/plan Marijuana abuse -Advised on the importance of cessation Depression with suicidal ideation -As per psychiatry Thank you for allowing us to participate in the care of this patient. We will follow peripherally. Do not hesitate to contact us with questions. Someone can be reached from the [facility] hospitalist group at all hours of the day at [phone]. Past Medical History Past Medical History: No Reported History Additional Past Medical History / Comment(s): renal calculi History of Any Multi-Drug Resistant Organisms: None Reported Past Surgical History: Ear Surgery, Tonsillectomy Additional Past Surgical History / Comment(s): nephrolytotomy for stone removal with stent placement Past Anesthesia/Blood Transfusion Reactions: No Reported Reaction Past Psychological History: Anxiety, Depression, Panic Disorder Smoking Status: Never smoker Past Alcohol Use History: None Reported Past Drug Use History: None Reported - Past Family History Father Family Medical History: No Reported History Mother Family Medical History: Asthma, Diabetes Mellitus, Hypertension Medications and Allergies Home Medications Medication Instructions Recorded Confirmed Type traZODone HCL [Desyrel] 100 mg PO HS 04/23/19 02/05/22 History Cariprazine HCl [Vraylar] 1.5 mg PO HS 08/07/20 02/05/22 History Omeprazole [PriLOSEC] 40 mg PO HS 01/09/21 02/05/22 History Vilazodone HCl [Viibryd] 40 mg PO HS 01/09/21 02/05/22 History Ondansetron Odt [Zofran Odt] 4 mg PO Q8HR PRN #10 tab 10/28/21 02/05/22 Rx Ciprofloxacin HCl 500 mg PO BID 02/05/22 02/05/22 History Allergies Allergy/AdvReac Type Severity Reaction Status Date / Time amoxicillin trihydrate Allergy Anaphylaxis Verified 02/05/22 21:02 [From Augmentin] azithromycin [From Zithromax] Allergy Anaphylaxis Verified 02/05/22 21:02 potassium clavulanate Allergy Anaphylaxis Verified 02/05/22 21:02 [From Augmentin] Sulfa (Sulfonamide Allergy Anaphylaxis Verified 02/05/22 21:02 Antibiotics) sulfamethoxazole Allergy Anaphylaxis Verified 02/05/22 21:02 [From Septra] trimethoprim [From Septra] Allergy Anaphylaxis Verified 02/05/22 21:02 Physical Exam Vitals: Vital Signs Temp Pulse Pulse Pulse Resp BP BP 02/06/22 02:43 97.3 F L 108 H 18 135/94 02/05/22 20:51 97.8 F 97 18 02/05/22 15:11 97.3 F L 80 20 148/88 BP Pulse Ox 02/06/22 02:43 02/05/22 20:51 130/63 96 02/05/22 15:11 100 Intake and Output 02/05/22 02/05/22 02/06/22 14:59 22:59 06:59 Other: Weight 125.917 kg Results Labs: Abnormal Lab Results - Last 24 Hours (Table) 02/05/22 02/05/22 Range/Units 22:25 22:25 Urine Appearance Cloudy H (Clear) Ur Leukocyte Esterase Small H (Negative) Ur Squamous Epith Cells 6 H (0-4) /hpf Urine Bacteria Few H (None) /hpf Urine Mucus Rare H (None) /hpf U Marijuana (THC) Screen Detected H (NotDetected)
[2022-02-06] MEDS: PANTOPRAZOLE 40 MG TABLET PO SCH (08:38)
[2022-02-06] MEDS ORDERED: SERTRALINE 50 MG TAB PO STA (10:35)
[2022-02-06 12:17] LABS: Basophils % (A) 1 %; Eosinophils # (A) 0.1 k/uL (0-0.7); Eosinophils % (A) 1 %; HCT 42.2 % (34.0-46.0); HGB 13.4 gm/dL (11.4-16.0); Hypochromasia Moderate; Lymphocytes # (A) 2.6 k/uL (1.0-4.8); Lymphocytes % (A) 32 %; MCH 26.8 pg (25.0-35.0); MCHC 31.7 g/dL (31.0-37.0); MCV 84.7 fL (80.0-100.0); Mean Platelet Volume 7.5; Monocytes # (A) 0.4 k/uL (0-1.0); Monocytes % (A) 5 %; Neutrophils # (A) 4.8 k/uL (1.3-7.7); Neutrophils % (A) 60 %; Platelet Count 312 k/uL (150-450); RBC 4.98 m/uL (3.80-5.40)
[2022-02-06 12:22] LABS: ALT 26 U/L (4-34); AST 26 U/L (14-36); African American GFR (CKD) >90 (>60 ml/min/1.73 sqM); Albumin 4.3 g/dL (3.5-5.0); Alkaline Phosphatase 68 U/L (38-126); Anion Gap 9 mmol/L; Bilirubin, Delta 0.1 mg/dL (0.0-0.2); Bilirubin,Unconjugated 0.5 mg/dL (0.0-1.1); Blood Urea Nitrogen 12 mg/dL (7-17); Calcium 9.5 mg/dL (8.4-10.2); Carbon Dioxide 26 mmol/L (22-30); Chloride 104 mmol/L (98-107); Glucose 104 mg/dL (74-99); Non-African American GFR(CKD) >90 (>60 ml/min/1.73 sqM); Potassium 4.3 mmol/L (3.5-5.1); Sodium 139 mmol/L (137-145); Total Bilirubin 0.6 mg/dL (0.2-1.3); Total Protein 7.2 g/dL (6.3-8.2)
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
[2022-02-06 18:05] LABS: Chol/HDL Ratio 2.72 Ratio; LDL Cholesterol,Calculated 66.5 mg/dL (0.0-131.0); VLDL Calculation 11.28 mg/dL (5.00-40.00)
[2022-02-06] MEDS: PRAZOSIN 1 MG CAP PO SCH (21:53)
[2022-02-06] MEDS: traZODone HCL 50 MG TAB PO SCH (21:53)
[2022-02-07] MEDS: SERTRALINE 50 MG TAB PO SCH (08:44)
[2022-02-07] MEDS: PANTOPRAZOLE 40 MG TABLET PO SCH (08:44)
--- NOTE | 2022-02-07 16:49 | P.PN ---
Progress Note - Text Progress Note Date: 02/07/22 Subjective: Patient was seen today as a cross coverage for Dr. Ordonez . The patient was evaluated, chart reviewed, case discussed with the treatment team. Patient reports better sleep last night, and appetite was reported as " fair". Patient has been going to groups and other unit activities. The patient is compliant with her medications and denies any adverse reactions. Patient reported better sleep last night but she still woke up a few times. She reported her mood is relatively better and she feels less negative. She denied feeling hopeless or suicidal today. She denies any hallucinations, paranoid ideation, delusions, or manic symptoms. She denies any intent to hurt herself or desire for self injury. Objective: Vitals has been reviewed. Mental status examination; Appearance: The patient appears stated age, fairly groomed, above average body built, no specific features. Gait/posture: Normal gait, Normal arm swinging: No abnormal movements. Attitude and behavior: engaged, cooperative, fair eye contact. Motor activity: Normal psychomotor activity Speech: Normal rate rhythm and articulation Mood:" Better" Affect: Restricted Thought form: goal-directed, linear, coherent. Thought content: Non-delusional, denies suicidal thoughts, denies homicidal thoughts, denies intentions or plans. Perception: And denies any auditory or visual hallucinations Attention: No impairment. Orientation: Patient is oriented to time place person and situation. Insight: Patient has fair insight about her psychiatric disorder. Judgment: Patient has fair judgment about her psychiatric treatment. Assessment: Major depressive disorder, recurrent, severe Borderline personality disorder Rule out PTSD Plan: Continue inpatient level of care due to patient needs further monitoring and stabilization for depression and mood instability symptoms Precautions: Continue 15 minutes check for safety. Consider medical consultation if any acute medical issues arise. Provide the patient individual, group therapy, substance use disorder counseling to give better insight and learn coping skills. Medications: Continue Zoloft 50 mg daily for depression and anxiety. Patient showed improvement and no need for further increase of the dose. Continue trazodone 150 mg at bedtime for depression and insomnia. Continue prazosin 2 mg at bedtime for PTSD symptoms. Continue when necessary psychiatric medications including Ativan and Haldol for agitation/aggression. Continue non-psychiatric medications for medical conditions as recommended by the medical team. Discharge patient to OUTPATIENT services upon a stabilization
[2022-02-07] MEDS ORDERED: ACETAMINOPHEN TAB 325 MG TAB PO PRN (18:28)
[2022-02-07] MEDS: PRAZOSIN 1 MG CAP PO SCH (21:25)
[2022-02-07] MEDS: traZODone HCL 50 MG TAB PO SCH (21:25)
[2022-02-08] MEDS: SERTRALINE 50 MG TAB PO SCH (08:07)
[2022-02-08] MEDS: PANTOPRAZOLE 40 MG TABLET PO SCH (08:07)
--- NOTE | 2022-02-08 15:54 | P.PN ---
Progress Note - Text Progress Note Date: 02/08/22 Subjective: Patient was seen today as a cross coverage for Dr. Ordonez . The patient was evaluated, chart reviewed, case discussed with the treatment team. Patient reported stability of her mood and he denied any depression symptoms, hopelessness, or suicidal ideation. She reported good sleep last night without taking Ativan" this is a first night don't take Ativan at bedtime". She denied any appetite problems. She denied any hallucinations, paranoid ideation, delusions, or manic symptoms. She reported that she feeling very content and stable" this is the best I've felt since last a few months". Objective: Vitals has been reviewed. Mental status examination; Appearance: The patient appears stated age, fairly groomed, above average body built, no specific features. Gait/posture: Normal gait, Normal arm swinging: No abnormal movements. Attitude and behavior: engaged, cooperative, fair eye contact. Motor activity: Normal psychomotor activity Speech: Normal rate rhythm and articulation Mood:" Very good" Affect: Restricted Thought form: goal-directed, linear, coherent. Thought content: Non-delusional, denies suicidal thoughts, denies homicidal thoughts, denies intentions or plans. Perception: And denies any auditory or visual hallucinations Attention: No impairment. Orientation: Patient is oriented to time place person and situation. Insight: Patient has fair insight about her psychiatric disorder. Judgment: Patient has fair judgment about her psychiatric treatment. Assessment: Major depressive disorder, recurrent, severe Borderline personality disorder Rule out PTSD Plan: Continue inpatient level of care due to patient needs further monitoring and stabilization for depression and mood instability symptoms Precautions: Continue 15 minutes check for safety. Consider medical consultation if any acute medical issues arise. Provide the patient individual, group therapy, substance use disorder counseling to give better insight and learn coping skills. Medications: Continue Zoloft 50 mg daily for depression and anxiety. Patient showed improvement and no need for further increase of the dose. Continue trazodone 150 mg at bedtime for depression and insomnia. Continue prazosin 2 mg at bedtime for PTSD symptoms. Continue when necessary psychiatric medications including Ativan and Haldol for agitation/aggression. Continue non-psychiatric medications for medical conditions as recommended by the medical team. Discharge patient to OUTPATIENT services upon a stabilization
[2022-02-08] MEDS: traZODone HCL 50 MG TAB PO SCH (22:04)
[2022-02-08] MEDS: PRAZOSIN 1 MG CAP PO SCH (22:04)
[2022-02-09] MEDS: LORazepam 1 MG TAB PO PRN (00:39)
[2022-02-09 07:19] VITALS: BP 132/70; PULSE 110; TEMP 98.6
[2022-02-09] MEDS: SERTRALINE 50 MG TAB PO SCH (08:40)
[2022-02-09] MEDS: PANTOPRAZOLE 40 MG TABLET PO SCH (08:40)
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
== END 2022-02-09 12:15 | disposition home or self-care (01) | DRG 885 ==
LOC: EC 14:08 → 3MHU 20:47
PROVIDERS: ADMIT Psychiatry & Neurology Psychiatry; ATTEND Psychiatry & Neurology Psychiatry
DX: F33.2 Major depressive disorder, recurrent severe without psychotic features (principal); R45.851 Suicidal ideations; F12.10 Cannabis abuse, uncomplicated; F22 Delusional disorders; F31.9 Bipolar disorder, unspecified; F41.0 Panic disorder [episodic paroxysmal anxiety]; F41.1 Generalized anxiety disorder; F43.10 Post-traumatic stress disorder, unspecified; F60.3 Borderline personality disorder; G47.00 Insomnia, unspecified; Z79.899 Other long term (current) drug therapy; Z82.49 Family history of ischemic heart disease and other diseases of the circulatory system; Z91.52 Personal history of nonsuicidal self-harm; Z20.822 Contact with and (suspected) exposure to COVID-19
CPT/HCPCS: 80053; 80061; 80306; 81001; 81025; 82075; 82248; 83036; 84443; 85025; 87635; 99285

== ENCOUNTER 2022-07-06 07:55 | Emergency (ER) | payer BC ==
[2022-07-06] MEDS ORDERED: ONDANSETRON 4 MG/2 ML VIAL IVP STA (09:00)
[2022-07-06] MEDS ORDERED: SODIUM CHLORIDE 0.9% 1,000 ML IV STA (09:00)
[2022-07-06] MEDS ORDERED: SODIUM CHLORIDE 0.9% 500 ML 500 ML IV STA (09:00)
[2022-07-06 09:26] VITALS: RESP 18
[2022-07-06 09:37] LABS: Basophils % (A) 0 %; Eosinophils # (A) 0.1 k/uL (0-0.7); Eosinophils % (A) 1 %; HCT 41.4 % (34.0-46.0); HGB 13.9 gm/dL (11.4-16.0); Lymphocytes # (A) 1.5 k/uL (1.0-4.8); Lymphocytes % (A) 12 %; MCHC 33.6 g/dL (31.0-37.0); MCV 83.2 fL (80.0-100.0); Monocytes # (A) 0.6 k/uL (0-1.0); Monocytes % (A) 5 %; Neutrophils # (A) 10.1 k/uL (1.3-7.7); Neutrophils % (A) 81 %; Platelet Count 276 k/uL (150-450); RBC 4.98 m/uL (3.80-5.40); RDW 14.2 % (11.5-15.5); WBC 12.5 k/uL (3.8-10.6)
--- NOTE | 2022-07-06 09:43 | ED ---
General Adult HPI - General Chief complaint: Nausea/Vomiting/Diarrhea Stated complaint: vomiting, diarrhea Time Seen by Provider: 07/06/22 08:53 Source: patient, RN notes reviewed Mode of arrival: ambulatory Limitations: no limitations - History of Present Illness Initial comments: 22-year-old female presents emergency Department with chief complaint of nausea vomiting diarrhea cough congestion. Patient just started on Wednesday was seen in urgent care and diagnosed with pneumonia placed in doxycycline. Patient states symptoms are worse in which she's been vomiting ever since. She can't keep anything down. She feels dehydrated complaining of abdominal discomfort, upset stomach related to this. Patient states her fevers have resolved. Denies any chance no dysuria no hematuria she has that she's had loose watery diarrhea with no melanotic stools no hematochezia. - Related Data Home Medications Medication Instructions Recorded Confirmed Doxycycline Hyclate 100 mg PO BID 07/06/22 07/06/22 Prazosin HCl 2 mg PO HS 07/06/22 07/06/22 Sertraline [Zoloft] 150 mg PO HS 07/06/22 07/06/22 traZODone HCL [Desyrel] 100 mg PO HS 07/06/22 07/06/22 Previous Rx's Medication Instructions Recorded Ondansetron Odt [Zofran Odt] 4 mg PO Q8HR PRN #10 tab 07/06/22 Allergies Allergy/AdvReac Type Severity Reaction Status Date / Time amoxicillin trihydrate Allergy Anaphylaxis Verified 07/06/22 09:57 [From Augmentin] azithromycin [From Zithromax] Allergy Anaphylaxis Verified 07/06/22 09:57 potassium clavulanate Allergy Anaphylaxis Verified 07/06/22 09:57 [From Augmentin] Sulfa (Sulfonamide Allergy Anaphylaxis Verified 07/06/22 09:57 Antibiotics) sulfamethoxazole Allergy Anaphylaxis Verified 07/06/22 09:57 [From Septra] trimethoprim [From Septra] Allergy Anaphylaxis Verified 07/06/22 09:57 Review of Systems ROS Statement: Those systems with pertinent positive or pertinent negative responses have been documented in the HPI. ROS Other: All systems not noted in ROS Statement are negative. Past Medical History Past Medical History: No Reported History Additional Past Medical History / Comment(s): renal calculi History of Any Multi-Drug Resistant Organisms: None Reported Past Surgical History: Ear Surgery, Tonsillectomy Additional Past Surgical History / Comment(s): nephrolytotomy for stone removal with stent placement Past Anesthesia/Blood Transfusion Reactions: No Reported Reaction Past Psychological History: Anxiety, Depression, Panic Disorder Smoking Status: Never smoker, Vaper Past Alcohol Use History: None Reported Past Drug Use History: Marijuana - Past Family History Father Family Medical History: No Reported History Mother Family Medical History: Asthma, Diabetes Mellitus, Hypertension General Exam Limitations: no limitations General appearance: alert, in no apparent distress Head exam: Present: atraumatic, normocephalic, normal inspection Eye exam: Present: normal appearance, PERRL, EOMI. Absent: scleral icterus, conjunctival injection, periorbital swelling ENT exam: Present: normal exam, normal oropharynx, mucous membranes moist Neck exam: Present: normal inspection, full ROM. Absent: tenderness, meningismus, lymphadenopathy Respiratory exam: Present: normal lung sounds bilaterally. Absent: respiratory distress, wheezes, rales, rhonchi, stridor Cardiovascular Exam: Present: normal rhythm, tachycardia, normal heart sounds. Absent: systolic murmur, diastolic murmur, rubs, gallop, clicks GI/Abdominal exam: Present: soft, tenderness, normal bowel sounds. Absent: distended, guarding, rebound, rigid Back exam: Absent: CVA tenderness (R), CVA tenderness (L) Neurological exam: Present: alert, oriented X3 Skin exam: Present: warm, dry, intact, normal color. Absent: rash Course Vital Signs 07/06/22 07/06/22 08:01 09:26 Temperature 98.5 F Pulse Rate 111 H 84 Respiratory 22 18 Rate Blood Pressure 134/74 114/75 O2 Sat by Pulse 99 96 Oximetry Medical Decision Making - Medical Decision Making X-ray and labs are unremarkable. Patient feels improved dietary fluids and antiemetics. Patient about infection will be discharged in stable condition. - Lab Data Result diagrams: 07/06/22 09:00 07/06/22 09:00 Lab Results 07/06/22 07/06/22 07/06/22 Range/Units 09:00 09:00 09:00 WBC 12.5 H (3.8-10.6) k/uL RBC 4.98 (3.80-5.40) m/uL Hgb 13.9 (11.4-16.0) gm/dL Hct 41.4 (34.0-46.0) % MCV 83.2 (80.0-100.0) fL MCH 28.0 (25.0-35.0) pg MCHC 33.6 (31.0-37.0) g/dL RDW 14.2 (11.5-15.5) % Plt Count 276 (150-450) k/uL MPV 8.0 Neutrophils % 81 % Lymphocytes % 12 % Monocytes % 5 % Eosinophils % 1 % Basophils % 0 % Neutrophils # 10.1 H (1.3-7.7) k/uL Lymphocytes # 1.5 (1.0-4.8) k/uL Monocytes # 0.6 (0-1.0) k/uL Eosinophils # 0.1 (0-0.7) k/uL Basophils # 0.0 (0-0.2) k/uL Sodium 138 (137-145) mmol/L Potassium 3.9 (3.5-5.1) mmol/L Chloride 106 (98-107) mmol/L Carbon Dioxide 21 L (22-30) mmol/L Anion Gap 11 mmol/L BUN 12 (7-17) mg/dL Creatinine 0.67 (0.52-1.04) mg/dL Est GFR (CKD-EPI)AfAm >90 (>60 ml/min/1.73 sqM) Est GFR (CKD-EPI)NonAf >90 (>60 ml/min/1.73 sqM) Glucose 119 H (74-99) mg/dL Calcium 9.1 (8.4-10.2) mg/dL Total Bilirubin 0.6 (0.2-1.3) mg/dL AST 24 (14-36) U/L ALT 25 (4-34) U/L Alkaline Phosphatase 84 (38-126) U/L Total Protein 7.1 (6.3-8.2) g/dL Albumin 4.2 (3.5-5.0) g/dL Lipase 52 (23-300) U/L Urine Color Urine Appearance (Clear) Urine pH (5.0-8.0) Ur Specific [place] (1.001-1.035) Urine Protein (Negative) Urine Glucose (UA) (Negative) Urine Ketones (Negative) Urine Blood (Negative) Urine Nitrite (Negative) Urine Bilirubin (Negative) Urine Urobilinogen (<2.0) mg/dL Ur Leukocyte Esterase (Negative) Urine RBC (0-5) /hpf Urine WBC (0-5) /hpf Ur Squamous Epith Cells (0-4) /hpf Urine Bacteria (None) /hpf Urine Mucus (None) /hpf Urine HCG, Qual Not Detected (Not Detectd) Coronavirus (PCR) (Not Detectd) 07/06/22 07/06/22 Range/Units 09:23 10:00 WBC (3.8-10.6) k/uL RBC (3.80-5.40) m/uL Hgb (11.4-16.0) gm/dL Hct (34.0-46.0) % MCV (80.0-100.0) fL MCH (25.0-35.0) pg MCHC (31.0-37.0) g/dL RDW (11.5-15.5) % Plt Count (150-450) k/uL MPV Neutrophils % % Lymphocytes % % Monocytes % % Eosinophils % % Basophils % % Neutrophils # (1.3-7.7) k/uL Lymphocytes # (1.0-4.8) k/uL Monocytes # (0-1.0) k/uL Eosinophils # (0-0.7) k/uL Basophils # (0-0.2) k/uL Sodium (137-145) mmol/L Potassium (3.5-5.1) mmol/L Chloride (98-107) mmol/L Carbon Dioxide (22-30) mmol/L Anion Gap mmol/L BUN (7-17) mg/dL Creatinine (0.52-1.04) mg/dL Est GFR (CKD-EPI)AfAm (>60 ml/min/1.73 sqM) Est GFR (CKD-EPI)NonAf (>60 ml/min/1.73 sqM) Glucose (74-99) mg/dL Calcium (8.4-10.2) mg/dL Total Bilirubin (0.2-1.3) mg/dL AST (14-36) U/L ALT (4-34) U/L Alkaline Phosphatase (38-126) U/L Total Protein (6.3-8.2) g/dL Albumin (3.5-5.0) g/dL Lipase (23-300) U/L Urine Color Yellow Urine Appearance Cloudy H (Clear) Urine pH 5.5 (5.0-8.0) Ur Specific [place] 1.035 (1.001-1.035) Urine Protein 1+ H (Negative) Urine Glucose (UA) Negative (Negative) Urine Ketones Negative (Negative) Urine Blood Negative (Negative) Urine Nitrite Negative (Negative) Urine Bilirubin Negative (Negative) Urine Urobilinogen <2.0 (<2.0) mg/dL Ur Leukocyte Esterase Trace H (Negative) Urine RBC 2 (0-5) /hpf Urine WBC 3 (0-5) /hpf Ur Squamous Epith Cells 5 H (0-4) /hpf Urine Bacteria Rare H (None) /hpf Urine Mucus Many H (None) /hpf Urine HCG, Qual (Not Detectd) Coronavirus (PCR) Not Detected (Not Detectd) Disposition Clinical Impression: Viral infection, Nausea & vomiting Disposition: HOME SELF-CARE Condition: Undetermined Instructions (If sedation given, give patient instructions): Acute Nausea and Vomiting (ED) Additional Instructions: Please return to the Emergency Department if symptoms worsen or any other concerns. Prescriptions: Ondansetron Odt [Zofran Odt] 4 mg PO Q8HR PRN #10 tab PRN Reason: Nausea Is patient prescribed a controlled substance at d/c from ED?: No Referrals: None,Stated [Primary Care Provider] - 1-2 days Time of Disposition: 10:41
[2022-07-06 10:03] LABS: ALT 25 U/L (4-34); AST 24 U/L (14-36); African American GFR (CKD) >90 (>60 ml/min/1.73 sqM); Albumin 4.2 g/dL (3.5-5.0); Alkaline Phosphatase 84 U/L (38-126); Anion Gap 11 mmol/L; Blood Urea Nitrogen 12 mg/dL (7-17); Calcium 9.1 mg/dL (8.4-10.2); Carbon Dioxide 21 mmol/L (22-30); Chloride 106 mmol/L (98-107); Glucose 119 mg/dL (74-99); Lipase 52 U/L (23-300); Non-African American GFR(CKD) >90 (>60 ml/min/1.73 sqM); Potassium 3.9 mmol/L (3.5-5.1); Sodium 138 mmol/L (137-145); Total Bilirubin 0.6 mg/dL (0.2-1.3); Total Protein 7.1 g/dL (6.3-8.2)
[2022-07-06 10:20] LABS: Appearance,Urine Cloudy (Clear); Bacteria,Urine Rare /hpf; Bilirubin,Urine Negative (Negative); Blood,Urine Negative (Negative); Color,Urine Yellow; Glucose,Urine (UA) Negative (Negative); Ketones,Urine Negative (Negative); Leukocyte Esterase,Urine Trace (Negative); Mucus,Urine Many /hpf; Nitrite,Urine Negative (Negative); PH, Urine 5.5 (5.0-8.0); Protein,Urine 1+ (Negative); RBC,Urine 2 /hpf (0-5); Specific Gravity,Urine 1.035 (1.001-1.035); Squamous Epithelial Cell,Urine 5 /hpf (0-4); Urobilinogen,Urine <2.0 mg/dL (<2.0); WBC,Urine 3 /hpf (0-5)
--- NOTE | 2022-07-06 10:51 | XR ---
EXAMINATION TYPE: XR chest 2V DATE OF EXAM: 07/06/2022 10:47 AM COMPARISON: Chest radiographs from 01/09/2021 TECHNIQUE: XR chest 2V Frontal and lateral views of the chest. CLINICAL INDICATION:Female, 22 years old with history of cough; FINDINGS: Lungs/Pleura: There is no evidence of pleural effusion, focal consolidation, or pneumothorax. Pulmonary vascularity: Unremarkable. Heart/mediastinum: Cardiomediastinal silhouette is unremarkable. Musculoskeletal: No acute osseous pathology. IMPRESSION: No acute cardiopulmonary disease/process.
[2022-07-06 11:12] VITALS: BP 120/78; PULSE 105; TEMP 98.9
== END 2022-07-06 11:10 | disposition home or self-care (01) ==
LOC: EC 07:55
DX: B34.9 Viral infection, unspecified (principal); F41.9 Anxiety disorder, unspecified; F32.A Depression, unspecified; F12.90 Cannabis use, unspecified, uncomplicated; F17.290 Nicotine dependence, other tobacco product, uncomplicated; Z20.822 Contact with and (suspected) exposure to COVID-19; Z79.899 Other long term (current) drug therapy; Z88.1 Allergy status to other antibiotic agents; Z88.2 Allergy status to sulfonamides; Z88.0 Allergy status to penicillin
CPT/HCPCS: 36415; 80053; 83690; 85025; 81001; 81025; 87635; 71046; 99284; 96374; 96361; J2405

== ENCOUNTER 2022-08-15 18:24 | Emergency (ER) | payer BC ==
--- NOTE | 2022-08-15 20:18 | XR ---
EXAMINATION TYPE: XR chest 2V DATE OF EXAM: 08/15/2022 COMPARISON: NONE HISTORY: Cough TECHNIQUE: 2 views FINDINGS: Heart and mediastinum are normal. There is a small reticular infiltrate in the right upper lobe above the minor fissure. The other lung verma are clear. Bony thorax is intact. IMPRESSION: Small right upper lobe pneumonia appears new compared to old exam.
[2022-08-15] MEDS ORDERED: IBUPROFEN 600 MG TAB PO STA (20:21)
--- NOTE | 2022-08-15 20:21 | ED ---
General Adult HPI - General Chief complaint: Upper Respiratory Infection Stated complaint: Sinus issues, chest pain Time Seen by Provider: 08/15/22 18:44 Source: patient, RN notes reviewed Mode of arrival: ambulatory Limitations: no limitations - History of Present Illness Initial comments: 22-year-old female presents to the emergency Department with complaints of sinus pressure, bilateral ear pain, and body aches for the past 2 days. States she had pneumonia prior to Thanksgiving and was treated with an antibiotic. Took Tylenol Cold and flu prior to arrival. Reports no change in her symptoms. States she has an achy feeling in her chest, but has had a minimal cough. Denies fever, chills, difficulty swallowing, shortness of breath, abdominal pain, nausea, vomiting, diarrhea, or dysuria. - Related Data Home Medications Medication Instructions Recorded Confirmed Doxycycline Hyclate 100 mg PO BID 07/06/22 07/06/22 Prazosin HCl 2 mg PO HS 07/06/22 07/06/22 Sertraline [Zoloft] 150 mg PO HS 07/06/22 07/06/22 traZODone HCL [Desyrel] 100 mg PO HS 07/06/22 07/06/22 Previous Rx's Medication Instructions Recorded Ondansetron Odt [Zofran Odt] 4 mg PO Q8HR PRN #10 tab 07/06/22 Levofloxacin [Levaquin] 500 mg PO DAILY 1 Days #7 tab 08/15/22 Allergies Allergy/AdvReac Type Severity Reaction Status Date / Time amoxicillin trihydrate Allergy Anaphylaxis Verified 07/06/22 09:57 [From Augmentin] azithromycin [From Zithromax] Allergy Anaphylaxis Verified 07/06/22 09:57 potassium clavulanate Allergy Anaphylaxis Verified 07/06/22 09:57 [From Augmentin] Sulfa (Sulfonamide Allergy Anaphylaxis Verified 07/06/22 09:57 Antibiotics) sulfamethoxazole Allergy Anaphylaxis Verified 07/06/22 09:57 [From Septra] trimethoprim [From Septra] Allergy Anaphylaxis Verified 07/06/22 09:57 doxycycline AdvReac Nausea & Verified 08/15/22 18:35 Vomiting Review of Systems ROS Statement: Those systems with pertinent positive or pertinent negative responses have been documented in the HPI. ROS Other: All systems not noted in ROS Statement are negative. Past Medical History Past Medical History: No Reported History Additional Past Medical History / Comment(s): renal calculi History of Any Multi-Drug Resistant Organisms: None Reported Past Surgical History: Ear Surgery, Tonsillectomy Additional Past Surgical History / Comment(s): nephrolytotomy for stone removal with stent placement Past Anesthesia/Blood Transfusion Reactions: No Reported Reaction Past Psychological History: Anxiety, Depression, Panic Disorder Smoking Status: Never smoker, Vaper Past Alcohol Use History: None Reported Past Drug Use History: Marijuana - Past Family History Father Family Medical History: No Reported History Mother Family Medical History: Asthma, Diabetes Mellitus, Hypertension General Exam Limitations: no limitations General appearance: alert, in no apparent distress Eye exam: Present: normal appearance, PERRL, EOMI. Absent: scleral icterus, conjunctival injection, periorbital swelling ENT exam: Present: normal exam, normal oropharynx, mucous membranes moist, TM's normal bilaterally Neck exam: Present: normal inspection, full ROM. Absent: tenderness, meningismus, lymphadenopathy Respiratory exam: Present: normal lung sounds bilaterally. Absent: respiratory distress, wheezes, rales, rhonchi, stridor, chest wall tenderness Cardiovascular Exam: Present: regular rate, normal rhythm, normal heart sounds. Absent: systolic murmur, diastolic murmur, rubs, gallop, clicks GI/Abdominal exam: Present: soft, normal bowel sounds. Absent: distended, tenderness, guarding, rebound, rigid Neurological exam: Present: alert, oriented X3, CN II-XII intact, normal gait Psychiatric exam: Present: normal affect, normal mood Skin exam: Present: warm, dry, intact, normal color. Absent: rash Course Vital Signs 08/15/22 08/15/22 08/15/22 18:31 18:32 21:53 Temperature 98.7 F 98.3 F Pulse Rate 99 92 Respiratory 18 16 Rate Blood Pressure 136/75 130/58 O2 Sat by Pulse 98 97 98 Oximetry - Reevaluation(s) Reevaluation #1: 08/15/2022 21:30 Discussed limitations of antibiotic options given patient's ALLERGIES. Explained that Levaquin was typically used in combination and is likely stronger than necessary, however given and ALLERGIES this was the best choice. Patient verbalizes understanding. We talked at length about avoiding vaping and discontinuing its use altogether. Medical Decision Making - Medical Decision Making Was pt. sent in by a medical professional or institution? @ -No Did you speak to anyone other than the patient for history? @ -No Did you review nursing and triage notes? @ -Reviewed and agree Were old charts reviewed? @ -Now Differential Diagnosis? @ URI, pneumonia, asthma, ALLERGIES, this is not meant to be an all-inclusive list. EKG interpreted by me (3pts min.)? @ -EKG obtained at 2038 shows sinus rhythm with nonspecific T-wave abnormality. Ventricular rate 94, PA interval 151, QRS duration 81, QT/QTC 323/375. Interpretation borderline ECG. Per my review, EKG shows no evidence of acute ischemic changes. There is no ectopy. X-rays interpreted by me (1pt min.)? @ -Chest x-ray as interpreted by me shows small area of infiltrate in the right upper lobe concerning for pneumonia. CT interpreted by me (1pt min.)? @ -Not applicable U/S interpreted by me (1pt. min.)? @ -Not applicable What testing was considered but not performed? (CT, X-rays, U/S, labs)? Why? @ None What meds were considered but not given? Why? @ -A number of antibiotics were considered to be more appropriate to treat this patient's pneumonia, however given a multitude of ALLERGIES there were minimal options. Did you discuss the management of the patient with other professionals? @ -None Did you reconcile home meds? @ -No Was smoking cessation discussed for >3mins.? @ -Yes Was critical care preformed (if so, how long)? @ -No Were there social determinants of health that impacted care today? How? (Homelessness, low income, unemployed, alcoholism, drug addiction, transportation, low edu. Level, literacy, decrease access to med. care, alf, rehab)? @ -No Was there de-escalation of care discussed even if they declined? (Discuss DNR or withdrawal of care, Hospice)? @ -No What co-morbidities impacted this encounter? (DM, HTN, Smoking, COPD, CAD, Cancer, CVA, Hep., AIDS, mental health diagnosis, sleep apnea, morbid obesity)? @ -Smoking/Vaping Was patient admitted / discharged? @ -Discharged Undiagnosed new problem with uncertain prognosis? @ -No Drug Therapy requiring intensive monitoring for toxicity (Heparin, Nitro, Insulin, Cardizem)? @ -No Were any procedures done? @ -No Diagnosis/symptom? @ -Community acquired Pneumonia, right upper lobe. 22-year-old female presents to the emergency Department with complaints of URI symptoms. Chest x-ray shows small right upper lobe pneumonia. Given extensive list of ALLERGIES, patient will be treated with a fluoroquinolone, though this is likely for stronger than necessary. Vital signs are stable. Viral swabs are negative. Patient will be discharged home to follow up with her PCP for recheck. Return parameters discussed in detail. Patient verbalizes understanding and agrees with this plan. Attending: Ahsan. Acute, or Chronic, or Acute on Chronic? @ -Acute Uncomplicated (without systemic symptoms) or Complicated (systemic symptoms)? @ -Uncomplicated Side effects of treatment? @ -Discussed black box warning for tendon rupture though explained patient was low risk Exacerbation, Progression, or Severe Exacerbation] @ -No Poses a threat to life or bodily function? @ -No - Lab Data Lab Results 08/15/22 Range/Units 18:39 Influenza Type A (PCR) Not Detected (Not Detectd) Influenza Type B (PCR) Not Detected (Not Detectd) RSV (PCR) Not Detected (Not Detectd) SARS-CoV-2 (PCR) Not Detected (Not Detectd) - EKG Data EKG shows normal: sinus rhythm Rate: normal EKG Comments: EKG obtained at 2038 shows sinus rhythm with nonspecific T-wave abnormality. Ventricular rate 94, PA interval 151, QRS duration 81, QT/QTC 323/375. Interpretation borderline ECG. Per my review, EKG shows no evidence of acute ischemic changes. There is no ectopy. - Radiology Data Radiology results: report reviewed, image reviewed Interpreted by me: Chest x-ray as interpreted by me showing small area of infiltrate in the right upper lobe. Two-view chest x-ray was obtained. Report was reviewed in its entirety. Impression per Dr. Reardon is a small right upper lobe pneumonia appears new compared to old exam. Disposition Clinical Impression: Community acquired pneumonia Disposition: HOME SELF-CARE Condition: Stable Instructions (If sedation given, give patient instructions): Bacterial Pneumoni a (ED) Additional Instructions: Take antibiotic as prescribed. Follow-up with your PCP for a recheck as needed. Return to the emergency department with any new, worsening, or concerning symptoms. Prescriptions: Levofloxacin [Levaquin] 500 mg PO DAILY 1 Days #7 tab Is patient prescribed a controlled substance at d/c from ED?: No Referrals: None,Stated [Primary Care Provider] - 1-2 days Time of Disposition: 21:34
[2022-08-15] MEDS ORDERED: LEVOFLOXACIN 500 MG TAB PO STA (21:30)
[2022-08-15 21:54] VITALS: BP 130/58; PULSE 92; RESP 16; TEMP 98.3
== END 2022-08-15 21:53 | disposition home or self-care (01) ==
LOC: EC 18:24
DX: J18.9 Pneumonia, unspecified organism (principal); F41.9 Anxiety disorder, unspecified; F32.A Depression, unspecified; F17.290 Nicotine dependence, other tobacco product, uncomplicated; F12.90 Cannabis use, unspecified, uncomplicated; Z88.2 Allergy status to sulfonamides; Z88.0 Allergy status to penicillin; Z88.1 Allergy status to other antibiotic agents; Z20.822 Contact with and (suspected) exposure to COVID-19
CPT/HCPCS: 71046; 87636; 93005; 99285

== ENCOUNTER 2022-08-16 07:17 | Emergency (ER) | payer BC ==
[2022-08-16 07:45] VITALS: TEMP 98.8
[2022-08-16] MEDS ORDERED: LORazepam 2 MG/ML INJ IV STA (07:48)
[2022-08-16 07:52] VITALS: RESP 18
--- NOTE | 2022-08-16 07:54 | ED ---
General Adult HPI - General Chief complaint: Shortness of Breath Stated complaint: pneumonia-revisit Time Seen by Provider: 08/16/22 07:20 Source: patient, RN notes reviewed, old records reviewed Mode of arrival: ambulatory Limitations: no limitations - History of Present Illness Initial comments: This is a 22-year-old female who presents emergency department stating that she was here last evening and was diagnosed with pneumonia. Patient states she still feels short of breath but she's not sure if she get short of breath or is it her anxiety. Patient denies any chest pain. Patient denies any control pills. Patient denies any swelling to the legs or calf tenderness. Patient denies any back pain. Patient denies any abdominal pain patient's nausea vomiting diarrhea. Patient denies any headache patient denies numbness weakness. Patient denies any lightheadedness or dizziness. - Related Data Home Medications Medication Instructions Recorded Confirmed Doxycycline Hyclate 100 mg PO BID 07/06/22 07/06/22 Prazosin HCl 2 mg PO HS 07/06/22 07/06/22 Sertraline [Zoloft] 150 mg PO HS 07/06/22 07/06/22 traZODone HCL [Desyrel] 100 mg PO HS 07/06/22 07/06/22 Previous Rx's Medication Instructions Recorded Ondansetron Odt [Zofran Odt] 4 mg PO Q8HR PRN #10 tab 07/06/22 Levofloxacin [Levaquin] 500 mg PO DAILY 1 Days #7 tab 08/15/22 Allergies Allergy/AdvReac Type Severity Reaction Status Date / Time amoxicillin trihydrate Allergy Anaphylaxis Verified 07/06/22 09:57 [From Augmentin] azithromycin [From Zithromax] Allergy Anaphylaxis Verified 07/06/22 09:57 potassium clavulanate Allergy Anaphylaxis Verified 07/06/22 09:57 [From Augmentin] Sulfa (Sulfonamide Allergy Anaphylaxis Verified 07/06/22 09:57 Antibiotics) sulfamethoxazole Allergy Anaphylaxis Verified 07/06/22 09:57 [From Septra] trimethoprim [From Septra] Allergy Anaphylaxis Verified 07/06/22 09:57 doxycycline AdvReac Nausea & Verified 08/15/22 18:35 Vomiting Review of Systems ROS Statement: Those systems with pertinent positive or pertinent negative responses have been documented in the HPI. ROS Other: All systems not noted in ROS Statement are negative. Past Medical History Past Medical History: No Reported History Additional Past Medical History / Comment(s): renal calculi History of Any Multi-Drug Resistant Organisms: None Reported Past Surgical History: Ear Surgery, Tonsillectomy Additional Past Surgical History / Comment(s): nephrolytotomy for stone removal with stent placement Past Anesthesia/Blood Transfusion Reactions: No Reported Reaction Past Psychological History: Anxiety, Depression, Panic Disorder Smoking Status: Never smoker, Vaper Past Alcohol Use History: None Reported Past Drug Use History: Marijuana - Past Family History Father Family Medical History: No Reported History Mother Family Medical History: Asthma, Diabetes Mellitus, Hypertension General Exam - General Exam Comments Initial Comments: GENERAL: Patient is well-developed and well-nourished. Patient is nontoxic and well-hyd rated and is in mild distress. ENT: Neck is soft and supple. No significant lymphadenopathy is noted. Oropharynx is clear. Moist mucous membranes. Neck has full range of motion without eliciting any pain. EYES: The sclera were anicteric and conjunctiva were pink and moist. Extraocular movements were intact and pupils were equal round and reactive to light. Eyelids were unremarkable. PULMONARY: Unlabored respirations. Good breath sounds bilaterally. No audible rales rhonchi or wheezing was noted. CARDIOVASCULAR: There is a regular rate and rhythm without any murmurs gallops or rubs. ABDOMEN: Soft and nontender with normal bowel sounds. SKIN: Skin is clear with no lesions or rashes and otherwise unremarkable. NEUROLOGIC: Patient is alert and oriented x3. Cranial nerves II through XII are grossly intact. Motor and sensory are also intact. Normal speech, volume and content. Symmetrical smile. MUSCULOSKELETAL: Normal extremities with adequate strength and full range of motion. LYMPHATICS: No significant lymphadenopathy is noted PSYCHIATRIC: Normal psychiatric evaluation. Limitations: no limitations Course Vital Signs 08/16/22 08/16/22 07:26 07:50 Temperature 98.8 F Pulse Rate 107 H Respiratory 19 18 Rate Blood Pressure 114/81 O2 Sat by Pulse 99 Oximetry Medical Decision Making - Medical Decision Making Was pt. sent in by a medical professional or institution? @ -No Did you speak to anyone other than the patient for history? @ -No Did you review nursing and triage notes? @ -I agree with the nursing notes and triage note Were old charts reviewed? @ -Previous chest x-ray was reviewed and I saw and right upper lobe infiltrate Differential Diagnosis? @ -Pneumonia, anxiety, bronchitis, bronchospasms, PE EKG interpreted by me (3pts min.)? @ -None X-rays interpreted by me (1pt min.)? @ -Known CT interpreted by me (1pt min.)? @ -None U/S interpreted by me (1pt. min.)? @ -None What testing was considered but not performed? (CT, X-rays, U/S, labs)? Why? @ -I considered the CAT scan however the patient was oxygenating at 99-100% on room air and the d-dimer was normal psychiatric not order a CAT scan What meds were considered but not given? Why? @ -None Did you discuss the management of the patient with other professionals? @ -Now Did you reconcile home meds? @ -Oh Was smoking cessation discussed for >3mins.? @ -No Was critical care preformed (if so, how long)? @ -No Were there social determinants of health that impacted care today? How? (Homelessness, low income, unemployed, alcoholism, drug addiction, transportation, low edu. Level, literacy, decrease access to med. care, fdc, rehab)? @ -No Was there de-escalation of care discussed even if they declined? (Discuss DNR or withdrawal of care, Hospice)? @ -No What co-morbidities impacted this encounter? (DM, HTN, Smoking, COPD, CAD, Cancer, CVA, Hep., AIDS, mental health diagnosis, sleep apnea, morbid obesity)? @ -Anxiety patient is extremely anxious and I think her anxiety is causing most of her symptoms and that is the reason for her revisit Was patient admitted / discharged? @ -Patient be discharged home I did lab work was all normal and a d-dimer was also done which was normal. I also reviewed her previous chest x-ray which was also normal which was done yesterday. Undiagnosed new problem with uncertain prognosis? @ -No Drug Therapy requiring intensive monitoring for toxicity (Heparin, Nitro, Insulin, Cardizem)? @ -No Were any procedures done? @ -No Diagnosis/symptom? @ -Pneumonia Acute, or Chronic, or Acute on Chronic? @ -Acute Uncomplicated (without systemic symptoms) or Complicated (systemic symptoms)? @ -Uncomplicated Side effects of treatment? @ -No Exacerbation, Progression, or Severe Exacerbation] @ -No Poses a threat to life or bodily function? @ -No Diagnosis/symptom? @ -Anxiety Acute, or Chronic, or Acute on Chronic? @ -Acute on chronic Uncomplicated (without systemic symptoms) or Complicated (systemic symptoms)? @ -Uncomplicated Side effects of treatment? @ -No Exacerbation, Progression, or Severe Exacerbation] @ -No Poses a threat to life or bodily function? @ -No - Lab Data Result diagrams: 08/16/22 07:51 08/16/22 07:51 Lab Results 08/16/22 08/16/22 08/16/22 Range/Units 07:51 07:51 07:51 WBC 9.3 (3.8-10.6) k/uL RBC 4.74 (3.80-5.40) m/uL Hgb 13.3 (11.4-16.0) gm/dL Hct 39.9 (34.0-46.0) % MCV 84.2 (80.0-100.0) fL MCH 28.1 (25.0-35.0) pg MCHC 33.4 (31.0-37.0) g/dL RDW 14.4 (11.5-15.5) % Plt Count 238 (150-450) k/uL MPV 8.3 Neutrophils % 76 % Lymphocytes % 18 % Monocytes % 4 % Eosinophils % 1 % Basophils % 0 % Neutrophils # 7.0 (1.3-7.7) k/uL Lymphocytes # 1.6 (1.0-4.8) k/uL Monocytes # 0.4 (0-1.0) k/uL Eosinophils # 0.1 (0-0.7) k/uL Basophils # 0.0 (0-0.2) k/uL D-Dimer 0.22 (<0.60) mg/L FEU Sodium 138 (137-145) mmol/L Potassium 3.9 (3.5-5.1) mmol/L Chloride 107 (98-107) mmol/L Carbon Dioxide 26 (22-30) mmol/L Anion Gap 5 mmol/L BUN 12 (7-17) mg/dL Creatinine 0.64 (0.52-1.04) mg/dL Est GFR (CKD-EPI)AfAm >90 (>60 ml/min/1.73 sqM) Est GFR (CKD-EPI)NonAf >90 (>60 ml/min/1.73 sqM) Glucose 108 H (74-99) mg/dL Calcium 8.9 (8.4-10.2) mg/dL Total Bilirubin 0.5 (0.2-1.3) mg/dL AST 20 (14-36) U/L ALT 22 (4-34) U/L Alkaline Phosphatase 67 (38-126) U/L Total Protein 6.4 (6.3-8.2) g/dL Albumin 3.6 (3.5-5.0) g/dL Disposition Clinical Impression: Pneumonia, Anxiety Disposition: HOME SELF-CARE Condition: Good Instructions (If sedation given, give patient instructions): Bacterial Pneumonia (ED), Anxiety (ED) Additional Instructions: Patient should continue taking Levaquin as prescribed Is patient prescribed a controlled substance at d/c from ED?: No Referrals: None,Stated [Primary Care Provider] - 1-2 days Time of Disposition: 08:36
[2022-08-16 08:08] LABS: Basophils % (A) 0 %; Eosinophils # (A) 0.1 k/uL (0-0.7); Eosinophils % (A) 1 %; HCT 39.9 % (34.0-46.0); HGB 13.3 gm/dL (11.4-16.0); Lymphocytes # (A) 1.6 k/uL (1.0-4.8); Lymphocytes % (A) 18 %; MCH 28.1 pg (25.0-35.0); MCHC 33.4 g/dL (31.0-37.0); MCV 84.2 fL (80.0-100.0); Mean Platelet Volume 8.3; Monocytes # (A) 0.4 k/uL (0-1.0); Monocytes % (A) 4 %; Neutrophils % (A) 76 %; Platelet Count 238 k/uL (150-450); RBC 4.74 m/uL (3.80-5.40); RDW 14.4 % (11.5-15.5); WBC 9.3 k/uL (3.8-10.6)
[2022-08-16 08:22] LABS: ALT 22 U/L (4-34); AST 20 U/L (14-36); African American GFR (CKD) >90 (>60 ml/min/1.73 sqM); Albumin 3.6 g/dL (3.5-5.0); Alkaline Phosphatase 67 U/L (38-126); Anion Gap 5 mmol/L; Blood Urea Nitrogen 12 mg/dL (7-17); Calcium 8.9 mg/dL (8.4-10.2); Carbon Dioxide 26 mmol/L (22-30); Chloride 107 mmol/L (98-107); Glucose 108 mg/dL (74-99); Non-African American GFR(CKD) >90 (>60 ml/min/1.73 sqM); Potassium 3.9 mmol/L (3.5-5.1); Sodium 138 mmol/L (137-145); Total Bilirubin 0.5 mg/dL (0.2-1.3); Total Protein 6.4 g/dL (6.3-8.2)
[2022-08-16 08:42] VITALS: BP 110/68; PULSE 99
== END 2022-08-16 08:42 | disposition home or self-care (01) ==
LOC: EC 07:17
DX: J18.9 Pneumonia, unspecified organism (principal); F41.9 Anxiety disorder, unspecified; F32.A Depression, unspecified; F17.290 Nicotine dependence, other tobacco product, uncomplicated; F12.90 Cannabis use, unspecified, uncomplicated; Z88.0 Allergy status to penicillin; Z88.1 Allergy status to other antibiotic agents; Z88.2 Allergy status to sulfonamides; Z88.8 Allergy status to other drugs, medicaments and biological substances
CPT/HCPCS: 36415; 85379; 80053; 85025; 99285; 96374; J2060